=== PATIENT | female | born 1945 | race Caucasian/White ===

== ENCOUNTER → 2016-02-12 10:05 | Outpatient (CLI) | payer MEDICARE ==
[2015-10-07 08:57] VITALS: BMI 21.7
[~2016-02-12 10:05] MED LIST: ATIVAN0.5 MG PO; CARDIZEM 90 MG90 MG PO; FUROSEMIDE20 MG PO; IPRAT-ALBUT 0.5-3 ML UPD; LASIX40 MG PO; LIPITOR10 MG; LIPITOR10 MG PO; MEDROL DOSE PACK4 MG PO; METOPROLOL TART25 MG PO; PACERONE200 MG PO; RESTORIL15 MG PO; VASOTEC20 MG PO; VENTOLIN HFA18 GM INH; VIBRAMYCIN 100100 MG PO; XOPENEX 0.0.63 MG/3 UPD
== END | disposition home or self-care (01) ==
LOC: D.RAD 10:05
DX: J18.9 Pneumonia, unspecified organism (principal)

== ENCOUNTER 2016-02-17 12:24 | Inpatient (IN) | payer MEDICARE ==
[~2016-02-17] VITALS: Ht 170.2 cm; Wt 62.8 kg
[~2016-02-17 12:24] MED LIST changes: -LASIX40 MG PO; -MEDROL DOSE PACK4 MG PO; -RESTORIL15 MG PO; -VIBRAMYCIN 100100 MG PO
[2016-02-17 13:26] LABS: BASOPHILS 0.5 % (0.0-2.0); HEMATOCRIT 38.5 % (36.0-48.0); HEMOGLOBIN 12.6 g/dL (12-16); IMMATURE GRANULOCYTES 1.3 % (0-5); LYMPHOCYTES 11.8 % (15-50); MCH 29.1 pg (26.0-34.0); MCHC 32.7 g/dL (31.0-37.0); MCV 88.9 fL (80.0-100.0); MEAN PLATELET VOLUME 9.4 fL (7.4-10.4); MONOCYTES 14.4 % (2-11); RBC 4.33 10x6/uL (4.00-5.40); RDW 15.9 % (11.5-14.5)
[2016-02-17 13:29] LABS: PLATELET COUNT 437 10x3/uL (130-400)
--- NOTE | 2016-02-17 14:01 | NUR ---
RECIEVED FROM DRS OFFICE. ALERT AND ORIENTD. EDEMA TO BOTH FEET AND LEGS BILATERAL. O2 AT 2 L/M PER NASAL CANNULA. TELEMERTY SHOWS SR. WILL MONITOR
[2016-02-17 14:23] LABS: ALBUMIN 3.2 g/dL (3.4-5.0); ANION GAP 15.6 mmol/L (8-16); BILIRUBIN - TOTAL 0.23 mg/dL (0.2-1.3); CALCIUM 10.1 mg/dL (8.5-10.1); CARBON DIOXIDE 28.8 mmol/L (21.0-32.0); CREATININE - SERUM 0.8 mg/dL (0.6-1.3); POTASSIUM - SERUM 3.4 mmol/L (3.5-5.1); PROTEIN - SERUM 6.9 g/dL (6.4-8.2); T4 THYROXIN - FREE 1.66 ng/dL (0.76-1.46); THYROID STIMULATING HORMONE 12.57 uIU/mL (0.36-3.74)
[2016-02-17 14:25] LABS: CKMB 1.9 U/L (0.0-3.6); CREATINE KINASE 50 UL (21-215); TROPONIN-I < 0.017 ng/mL (0.000-0.060)
[2016-02-17 14:36] VITALS: BP 147/74; BMI 21.2
--- NOTE | 2016-02-17 15:21 | NUR ---
IV access-#22 gauge intracan IV catheter x 1 attempt for saline flush. [place] RN
--- NOTE | 2016-02-17 18:40 | NUR ---
UP TO BATHROOM. DENIES ANY NEEDS. CALL LIGHT IN REACH WITH SR UP. WILL MONITOR
--- NOTE | 2016-02-17 19:03 | NUR ---
SITTING UP IN BED, AAOX3, SKIN WARM AND DRY, RESP UNLABORED, IV PATENT TO LEFT FOREARM, MOOD PLEASANT, NO DISTRESS NOTED
[2016-02-17 19:50] LABS: CKMB 2.5 U/L (0.0-3.6); CREATINE KINASE 52 UL (21-215)
[2016-02-17 19:54] LABS: TROPONIN-I < 0.017 ng/mL (0.000-0.060)
[2016-02-17 21:27] VITALS: BP 181/79
[2016-02-18] VITALS: BP 182/75
[2016-02-18] MEDS ORDERED: PACERONE200 MG PO (00:46)
[2016-02-18 02:21] LABS: CKMB 1.8 U/L (0.0-3.6); CREATINE KINASE 74 UL (21-215)
[2016-02-18 02:36] LABS: TROPONIN-I < 0.017 ng/mL (0.000-0.060)
[2016-02-18 04:00] VITALS: BP 178/81
--- NOTE | 2016-02-18 04:53 | NUR ---
PT LAYING IN BED NO DISTRESS OBSERVED CALL LIGHT IN REACH SRX2 BED LOW AND LOCKED WILL MONITOR
--- NOTE | 2016-02-18 05:00 | NUR ---
RESTING QUIETLY IN BED, NO DISTRESS NOTED
[2016-02-18 07:27] VITALS: BP 151/73
--- NOTE | 2016-02-18 07:27 | NUR ---
ASSESSMENT COMPLETED. 02 AT 2 L/M PER NC. LEFT ARM SL. TELEMERTY SHOWSSR WITH A RATE OF 77. PT IS UP ABLIB. WILL MONITOR
[2016-02-18 11:36] VITALS: BP 157/79
--- NOTE | 2016-02-18 12:14 | NUR ---
PT REFUSES SCD S. DENIES ANY NEEDS. WILL MONITOR
[2016-02-18 14:22] VITALS: Ht 170.2 cm; Wt 62.8 kg
--- NOTE | 2016-02-18 14:57 | NUR ---
HOB UP. EYES CLOSED RESTING QUIETLY. TELEMERTY SHOWS SR. WILL MONITOR
[2016-02-18 15:44] VITALS: BP 137/73
--- NOTE | 2016-02-18 15:52 | NUR ---
PATIENT ASLEEP. WITH CONTINUE TO MONITOR
--- NOTE | 2016-02-18 18:43 | NUR ---
DENIES ANY NEEDS. FEET WITH LESS SWELLING. WILL MONITOR
--- NOTE | 2016-02-18 19:03 | NUR ---
SITTING UP IN BED, AAOX3, SKIN WARM AND DRY, RESP UNLABORED, IV PATENT TO LEFT FOREARM, O2@2LNC, MOOD PLEASANT, NO DISTRESS NOTED
[2016-02-18 19:46] VITALS: BP 157/64
--- NOTE | 2016-02-19 00:40 | NUR ---
PT LAYING IN BED NO DISTRESS OBSERVED CALL LIGHT IN REACH SRX2 BED LOW AND LOCKED WILL MONITOR
[2016-02-19 01:10] VITALS: BP 148/66
[2016-02-19 04:00] VITALS: BP 114/45
[2016-02-19 07:37] VITALS: BP 125/51
--- NOTE | 2016-02-19 08:00 | NUR ---
ASSESSMENT DONE. DENIES NEEDS.
--- NOTE | 2016-02-19 09:24 | NUR ---
RESP UL ON . CALL LIGHT IN REACH. JENNIFER NEEDS AT THIS TIME. WILL MONITOR.
--- NOTE | 2016-02-19 10:32 | NUR ---
Patient Name: ISABELLA LONDONO Admission Status: Elective Accout number: [id number] Admission Date: 02-17-2016 : 1945 Admission Diagnosis: Attending: TYE Current LOS: 2 Anticipated DC Date: Planned Disposition: Home with Home Health Primary Insurance: [facility] PFFS PLANNED EXTERNAL PROVIDER: [facility] Discharge Planning Comments: * Is the patient Alert and Oriented? Yes 0 * How many steps to enter\exit or inside your home? RAMP 0 * PCP DR. WYMAN 0 * Pharmacy [facility], [address] * Preadmission Environment Home with Family 0 * ADLs Independent 0 * Equipment Bedside Commode Crutch Oxygen Walker 0 * Other Equipment [facility] - MEDICAL EQUIPMENT PROVIDER HOME AND PORTABLE OXYGEN - PRIVATELY OWNED 0 * List name and contact numbers for known caregivers / representatives who currently or will assist patient after discharge: WANG SHETH-[employer], DAUGHTER, 0 * Community resources currently utilized None 0 * Please name any agencies selected above. NONE 0 * Additional services required to return to the preadmission environment? No 0 * Can the patient safely return to the preadmission environment? Yes 0 * Has this patient been hospitalized within the prior 30 days at any hospital? No 0 CM MET WITH PT IN ROOM TO DISCUSS DISCHARGE PLANNING AND NEEDS. PT REPORTS LIVING AT HOME INDEPENDENTLY WITH HER SPOUSE. PT REPORTS HAVING ALL NEEDED MEDICAL EQUIPMENT, STATES THAT SHE HAS PORTABLE AND HOME OXYGEN THAT IS OWNED PRIVATELY. PT HAS NO OUTSIDE SERVICES ASSISTING IN THE HOME. CM DISCUSSED AVAILABILITY OF HOME HEALTH, REHAB SERVICES AND MEDICAL EQUIPMENT. PT HAS HAD [facility] IN THE PAST AND FEELS IT HELPED HER AND WOULD LIKE [facility] AGAIN AT DISCHARGE; PT REPORTS HER SPOUSE WILL PICK HER UP FOR DISCHARGE HOME. PT SIGNED CHOICE LETTER FOR [facility]. IF PHYSICIAN AGREES WITH NEED FOR HOME HEALTH SERVICES, OBSERVATION AND ASSESSMENT [facility] PHYSICAL THERAPY, CM WILL ARRANGE WITH PHYSICIAN ORDERS. Certified Personal Finance Counselor: Jeovanny Espinoza
[2016-02-19 11:27] VITALS: BP 149/67
[2016-02-19 15:35] VITALS: BP 156/60
--- NOTE | 2016-02-19 18:58 | NUR ---
WITHOUT CHANGES OR DISTRESS NOTED AT THIS TIME.
--- NOTE | 2016-02-19 19:03 | NUR ---
SITTING UP IN BED, AAOX3, SKIN WARM AND DRY, RESP UNLABORED, IV INFILTRATED, RESITED TO RIGHT FOREARM USING 20G X 1 ATTEMPT, VIKRAM WELL, NO DISTRESS NOTED
[2016-02-19 21:18] VITALS: BP 155/58
[2016-02-20 01:32] VITALS: BP 157/77
--- NOTE | 2016-02-20 02:26 | NUR ---
LYING IN BED WITH CALL LIGHT IN REACH. WILL CONTINUE WITH PLAN OF CARE.
[2016-02-20 04:57] VITALS: BP 159/61
[2016-02-20 06:05] LABS: BASOPHILS 0.1 % (0.0-2.0); EOSINOPHILS 0 % (0-7); HEMATOCRIT 35.4 % (36.0-48.0); HEMOGLOBIN 11.7 g/dL (12-16); IMMATURE GRANULOCYTES 1.3 % (0-5); LYMPHOCYTES 12.5 % (15-50); MCH 28.2 pg (26.0-34.0); MCHC 33.1 g/dL (31.0-37.0); MCV 85.3 fL (80.0-100.0); MEAN PLATELET VOLUME 9.6 fL (7.4-10.4); MONOCYTES 3.5 % (2-11); NEUTROPHILS 82.6 % (40-80); PLATELET COUNT 466 10x3/uL (130-400); RBC 4.15 10x6/uL (4.00-5.40); RDW 15.4 % (11.5-14.5); WBC 7.5 10x3/uL (4.8-10.8)
[2016-02-20 06:21] LABS: ANION GAP 11.7 mmol/L (8-16); CARBON DIOXIDE 30.6 mmol/L (21.0-32.0); CREATININE - SERUM 0.9 mg/dL (0.6-1.3); MAGNESIUM - SERUM 1.6 mg/dL (1.8-2.4); POTASSIUM - SERUM 3.3 mmol/L (3.5-5.1)
--- NOTE | 2016-02-20 07:15 | NUR ---
PT SITTING UP IN BED DOING BREATHING TX. DENIES NEEDS WILL CONTINUE TO MONITOR
[2016-02-20 08:38] VITALS: BP 150/64
[2016-02-20 12:25] VITALS: BP 132/56
--- NOTE | 2016-02-20 15:54 | NUR ---
PT SITTING UP IN BED RECEIVING IV ABX. PT HAS BEEN COMPLAINING OF IV MEDS HURTING. PIV SITE IS NOT RED OR INDURATED. NO PAIN AT SITE WHEN FLUSHED WITH JUST SALINE. PT IS GETTING SOLUMEDROL AND DOXYCYCLINE IV. SLOWED IV ABX DOWN AND DILUTED SOLUMEDROL HAS SEEMED TO HELP. PT DENIES OTHER NEEDS. WILL CONTINUE TO MONITOR.
[2016-02-20 16:28] VITALS: BP 146/66
[2016-02-20 20:00] VITALS: BP 133/47
--- NOTE | 2016-02-20 20:10 | NUR ---
ANSWERED PTS CL, PT STATED THAT SHE WANTS HER IV TAKEN OUT, EXPLAINED TO HER THAT SHE WAS ADMITTED WITH CHF AND THAT SHE REALLY NEEDS TO HAVE IV ACCESS TO RECIEVE HER MEDICATIONS SUCH ANTIBIOTICS, STEROIDS AND DIURETICS. PT STATED THAT SHE WILL TAKE FULL RESPONSABILITY WITH THE DOCTOR AND TO JUST TAKE OUT HER IV, INFORMED HER THAT I WILL CALL THE DR AND ASK ABOUT ORAL MEDICATIONS, PT AGREED TO KEEP IV FOR NOW BUT ALSO STATED THAT SHE WILL NOT TAKE ANY IV MEDICATIONS FOR THE REST OF THE NIGHT UNTIL SHE TALKS TO THE DOCTOR IN THE MORNING.
--- NOTE | 2016-02-20 21:32 | NUR ---
HS MEDS GIVEN, PT WOULD ONLY AGREE TO TAKE PO MEDICATIONS, REFUSED TO RECIEVE SOLUMEDROL THROUGH IV.
--- NOTE | 2016-02-20 22:50 | NUR ---
SPOKE WITH DR MALDONADO, EXPLAINED THAT PT HAS A GOOD FUNCTIONING IV TO RIGHT FOREARM BUT SHE STATES THAT SHE WANTS IT OUT BECAUSE IT HURTS, INFORMED OF PTS IV MEDICATIONS AND ASKED ABOUT CHANGING TO ORAL, ORDERS GIVEN TO CHANGE LASIX TO PO AND OTHER MEDICATIONS NEEDS TO BE DSICUSSED WITH HER PRIMARY PHYSICIAN.
[2016-02-21] VITALS: BP 127/55
[2016-02-21 04:00] VITALS: BP 125/53
--- NOTE | 2016-02-21 05:02 | NUR ---
CALL LIGHT IN REACH, WILL CONTINUE WITH PLAN OF CARE.
[2016-02-21 05:43] LABS: BASOPHILS 0.1 % (0.0-2.0); EOSINOPHILS 0 % (0-7); HEMATOCRIT 34.6 % (36.0-48.0); HEMOGLOBIN 11.3 g/dL (12-16); IMMATURE GRANULOCYTES 1.3 % (0-5); LYMPHOCYTES 6.4 % (15-50); MCH 28.1 pg (26.0-34.0); MCHC 32.7 g/dL (31.0-37.0); MCV 86.1 fL (80.0-100.0); MEAN PLATELET VOLUME 9.8 fL (7.4-10.4); MONOCYTES 6.1 % (2-11); NEUTROPHILS 86.1 % (40-80); PLATELET COUNT 457 10x3/uL (130-400); RBC 4.02 10x6/uL (4.00-5.40); RDW 15.6 % (11.5-14.5)
[2016-02-21 05:50] LABS: WBC 17.3 10x3/uL (4.8-10.8)
[2016-02-21 05:57] LABS: ANION GAP 14.2 mmol/L (8-16); CALCIUM 9.7 mg/dL (8.5-10.1); CARBON DIOXIDE 27.4 mmol/L (21.0-32.0); CREATININE - SERUM 1.1 mg/dL (0.6-1.3); MAGNESIUM - SERUM 1.7 mg/dL (1.8-2.4); PHOSPHOROUS 3.7 mg/dL (2.5-4.9); POTASSIUM - SERUM 3.6 mmol/L (3.5-5.1)
--- NOTE | 2016-02-21 07:15 | NUR ---
PT SITTING UP IN BED DENIES NEEDS OTHER THAN WANTING IV MEDS CHANGED TO PO. REFUSING IV MEDS. WILL CONTINUE TO MONITOR.
[2016-02-21 08:00] VITALS: BP 127/46
[2016-02-21 12:00] VITALS: BP 134/59
--- NOTE | 2016-02-21 13:31 | HP ---
PATIENT: ISABELLA LONDONO MEDICAL RECORD: [id number] ACCOUNT: [id number] LOCATION:[address] : [birth year] ADMISSION DATE: 02/17/16 HISTORY AND PHYSICAL EXAMINATION DATE OF ADMISSION: 02/17/2016. CHIEF COMPLAINT: Lower extremity edema and weakness. HISTORY OF PRESENT ILLNESS: This is a 70-year-old female who presented to my office today with increased lower extremity edema, a little worse on the left. She has had a horrible chest congestion for the last week. She states she stopped eating, has been losing weight. She is drinking lots of fluids, however. She denies any chest pain, but states she cannot walk, but just a few feet without becoming short of breath. In the office, she had 3-4+ bilateral lower extremity edema. She has some crackles in her lungs. She is admitted for fluid overload and acute systolic congestive heart failure. PAST MEDICAL AND SURGICAL HISTORY: She was hospitalized at [facility] on 10/05/2015 and found to have atrial fibrillation with rapid ventricular response. Her echo then showed ejection fraction of 55% with moderate to severe mitral regurgitation and tricuspid regurgitation. She was also found to have anxiety and she has COPD, hypertension, and high cholesterol. Her past surgical history is tonsillectomy. 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 FAMILY HISTORY: Not documented. HABITS: She is a former smoker. No alcohol or drug use. REVIEW OF SYSTEMS: GENERAL: No major weight changes. HEENT: No particular sinus or allergy problems. RESPIRATORY: She has COPD and is seen by Dr. Toro and Dr. Diaz. CARDIAC: History of paroxysmal atrial fibrillation, followed by Dr. Parry. GASTROINTESTINAL: She denies reflux. GENITOURINARY: No significant problems there. MUSCULOSKELETAL: Few joint aches and pains. NEUROLOGIC: No migraines or seizures. PSYCHIATRIC: She has some anxiety. PHYSICAL EXAMINATION: VITAL SIGNS: Temperature 97.9, pulse 78, respirations 20, blood pressure 181/79, O2 sat 97%. SKIN: She is weak and ill appearing, a little pale. HEENT: Grossly within normal limits. NECK: Supple. No bruit. HEART: Regular rate and rhythm without murmur. LUNGS: Crackles in the bases bilaterally. ABDOMEN: Soft. EXTREMITIES: With 3-4+ pitting edema in the lower extremities bilaterally. LABORATORY DATA: Cardiac enzymes are negative. CBC with a white count of 12,000, hemoglobin 12.6, hematocrit 38.5. 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 LFTs were okay. TSH is elevated at 12.5 but so is free T4 at 1.66. DIAGNOSTIC DATA: Chest x-ray had showing think emphysema without acute cardiopulmonary disease. There is no radiographic findings of congestive heart failure. ASSESSMENT: 1. Acute fluid overload. 2. Acute systolic congestive heart failure. PLAN: Diurese, check echocardiogram. I will ask Dr. Parry to see her. Other tests and procedures as warranted. TRANSINT:[id number] Voice Confirmation ID: [id number] DOCUMENT ID: [id number] CECY WYMAN MD at 1331 CC: [id number] DICTATION DATE: 02/18/16 0057 C 13 CATAPULT OPERATOR: 02/18/16 0156 ADM IN [facility] [address] [place] [address]
[2016-02-21 16:02] VITALS: BP 116/57
--- NOTE | 2016-02-21 18:44 | NUR ---
PT SITTING UP IN BED DENEIS NEEDS
[2016-02-21 20:00] VITALS: BP 134/59
[2016-02-22] VITALS: BP 124/52
--- NOTE | 2016-02-22 02:06 | NUR ---
PT RESTING WELL WITHOUT C/O OR DISTRESS NOTED. NO NEEDS VOICED. CALL LIGHT WITHIN REACH. WILL CONT TO MONITOR.
[2016-02-22 04:00] VITALS: BP 147/61
--- NOTE | 2016-02-22 04:16 | NUR ---
IV TO RIGHT FOREARM LEAKING, IV CATH REMOVED WITH TIP INTACT. IV RESITED TO LEFT FOREARM, 22 GUAGE. PT TOLERATED WELL. IV ABX INFUSING, WILL CONT TO MONITOR.
[2016-02-22 06:19] LABS: BASOPHILS 0.1 % (0.0-2.0); EOSINOPHILS 0 % (0-7); HEMATOCRIT 34.5 % (36.0-48.0); HEMOGLOBIN 11.4 g/dL (12-16); IMMATURE GRANULOCYTES 1.3 % (0-5); LYMPHOCYTES 4.9 % (15-50); MCH 28.6 pg (26.0-34.0); MCV 86.5 fL (80.0-100.0); MEAN PLATELET VOLUME 9.8 fL (7.4-10.4); MONOCYTES 6.7 % (2-11); PLATELET COUNT 410 10x3/uL (130-400); RBC 3.99 10x6/uL (4.00-5.40); RDW 15.6 % (11.5-14.5); WBC 13.8 10x3/uL (4.8-10.8)
[2016-02-22 06:41] LABS: ANION GAP 12.1 mmol/L (8-16); CALCIUM 8.7 mg/dL (8.5-10.1); CARBON DIOXIDE 28.6 mmol/L (21.0-32.0); CREATININE - SERUM 0.9 mg/dL (0.6-1.3); MAGNESIUM - SERUM 1.9 mg/dL (1.8-2.4); PHOSPHOROUS 3.5 mg/dL (2.5-4.9); POTASSIUM - SERUM 3.7 mmol/L (3.5-5.1)
--- NOTE | 2016-02-22 07:17 | NUR ---
PT SITTING UP IN BED DOING BREATHING TREATMENT. DENIES NEEDS WILL CONTINUE TO MONITOR.
[2016-02-22 08:40] VITALS: BP 129/57
[2016-02-22 12:03] VITALS: BP 141/67
[2016-02-22 14:47] VITALS: BP 114/54
--- NOTE | 2016-02-22 18:27 | NUR ---
PT SITTING UP IN BED DENIES NEEDS
--- NOTE | 2016-02-22 19:34 | NUR ---
ASSESSMENT COMPLETE, A&O, SITTING UP IN BED WATCHING TV. PT DENIES PAIN OR NEEDS, BED LOW, CL IN REACH.
[2016-02-22 21:13] VITALS: BP 146/62
[2016-02-23] VITALS (7 sets, daily range): BP systolic 145–176; BP diastolic 63–79
[2016-02-23 06:11] LABS: BASOPHILS 0.1 % (0.0-2.0); EOSINOPHILS 0.1 % (0-7); HEMATOCRIT 36.6 % (36.0-48.0); HEMOGLOBIN 11.7 g/dL (12-16); IMMATURE GRANULOCYTES 1.5 % (0-5); LYMPHOCYTES 11.5 % (15-50); MCH 28.1 pg (26.0-34.0); MEAN PLATELET VOLUME 10.3 fL (7.4-10.4); MONOCYTES 18.3 % (2-11); NEUTROPHILS 68.5 % (40-80); PLATELET COUNT 437 10x3/uL (130-400); RBC 4.16 10x6/uL (4.00-5.40); RDW 15.7 % (11.5-14.5); WBC 15.4 10x3/uL (4.8-10.8)
[2016-02-23 06:35] LABS: ANION GAP 13.4 mmol/L (8-16); CALCIUM 9.3 mg/dL (8.5-10.1); CREATININE - SERUM 0.9 mg/dL (0.6-1.3); PHOSPHOROUS 3.4 mg/dL (2.5-4.9); POTASSIUM - SERUM 4.4 mmol/L (3.5-5.1)
--- NOTE | 2016-02-23 09:53 | NUR ---
TELEMETRY SR. RESP UL ON 02 3L NC. CALL LIGHT IN REACH. WILL MONITOR NEEDS.
--- NOTE | 2016-02-23 19:32 | NUR ---
RESUMED CARE OF PT, LYING IN BED RESPIRATIONS EVEN AND UNLABORED ON 3LPM VIA NC. 71 SR ON TELEMETRY. LEFT WRIST SALINE LOCKED. NO NEEDS VOICED AT THIS TIME. WILL CONTINUE TO [facility]. SEE NURSE ASSESSMENT.
[2016-02-24] VITALS: BP 156/68
--- NOTE | 2016-02-24 02:37 | NUR ---
LYING IN BED WITH EYES CLOSED, CALL LIGHT IN REACH. WILL CONTINUE WITH PLAN OF CARE.
--- NOTE | 2016-02-24 03:58 | NUR ---
IV INFILTRATED, DC'D WITH TIP INTACT. 22 GAUGE TO LEFT HAND X 1 STICK. DOXYCYCLINE INFUSING. WILL CONTINUE TO MONITOR. CALL LIGHT IN REACH.
[2016-02-24 04:00] VITALS: BP 101/56
[2016-02-24 06:01] LABS: BASOPHILS 0.2 % (0.0-2.0); EOSINOPHILS 0.1 % (0-7); HEMATOCRIT 35.1 % (36.0-48.0); HEMOGLOBIN 11.4 g/dL (12-16); IMMATURE GRANULOCYTES 1.7 % (0-5); LYMPHOCYTES 17.2 % (15-50); MCH 28.2 pg (26.0-34.0); MCHC 32.5 g/dL (31.0-37.0); MCV 86.9 fL (80.0-100.0); MONOCYTES 17.6 % (2-11); NEUTROPHILS 63.2 % (40-80); PLATELET COUNT 402 10x3/uL (130-400); RBC 4.04 10x6/uL (4.00-5.40); RDW 15.7 % (11.5-14.5); WBC 13.3 10x3/uL (4.8-10.8)
[2016-02-24 06:12] LABS: ANION GAP 8.8 mmol/L (8-16); CALCIUM 8.4 mg/dL (8.5-10.1); CARBON DIOXIDE 29.3 mmol/L (21.0-32.0); CREATININE - SERUM 0.8 mg/dL (0.6-1.3); MAGNESIUM - SERUM 1.9 mg/dL (1.8-2.4)
[2016-02-24 06:16] LABS: POTASSIUM - SERUM 3.1 mmol/L (3.5-5.1)
--- NOTE | 2016-02-24 06:40 | NUR ---
AM K+ 3.1 FOLLOWED ELECTROLYTE PROTOCOL AND GAVE 40 MEQ OF K+ PO. WILL CONTINUE TO MONITOR.
--- NOTE | 2016-02-24 07:06 | NUR ---
NO CHANGES FROM PREVIOUS ASSESSMENT, CALL LIGHT IN REACH.
[2016-02-24 08:00] VITALS: BP 156/61
[2016-02-24 09:05] VITALS: BP 188/71
[2016-02-24 11:59] VITALS: BP 122/53
--- NOTE | 2016-02-24 13:49 | NUR ---
TELEMETRY SR. AMBULATES HALLWAY WITH PT CORINNE.
[2016-02-24 15:46] VITALS: BP 132/58
--- NOTE | 2016-02-24 16:43 | NUR ---
Patient Name: ISABELLA LONDONO Encounter No: [id number] : 1945 Primary Insurance: [facility] [employer] PFFS Anticipated DC Date: Planned Disposition: Home with Home Health External Planned Provider: [facility] DCP follow-up note: CM RECEIVED HOME HEALTH ORDER, SPOKE TO PT IN ROOM WHO IS WANTING HOME HEALTH AT DISCHARGE. CM ATTEMPTED TO PROVIDE AND DISCUSS IMPORTANT MESSAGE FROM MEDICARE, PT REPORTS TO BE IN PAIN AND ASKED CM TO COME BACK LATER. CM FAXED REFERRAL TO [facility], , CALLED [facility] [phone], PROVIDED REFERRAL TO [place]. FOR DISCHARGE HOME, FAX DISCHARGE INFORMATION TO [facility] [facility], , NOTIFY [facility] OF PT'S DISCHARGE, . CM TO CONTINUE TO FOLLOW AND ASSIST NEEDED. Jeovanny Espinoza, CASE MANAGEMENT
--- NOTE | 2016-02-24 19:03 | NUR ---
SITTING UP IN BED, AAOX3, SKIN WARM AND DRY, RESP UNLABORED, IV PATENT TO LEFT HAND, O2@3LNC, MOOD PLEASANT, NO DISTRESS NOTED
[2016-02-25] VITALS: BP 152/69
--- NOTE | 2016-02-25 02:19 | NUR ---
PT LAYING IN BED NO DISTRESS OBSERVED CALL LIGHT IN REACH SRX2 BED LOW AND SERVANDO PT READING 70 SR ON MONITORS RESPERATIONS EVEN AND UNLBAORED WILL MONITOR
[2016-02-25 04:00] VITALS: BP 163/69
--- NOTE | 2016-02-25 05:41 | NUR ---
REFUSING AM LABS, STATING "I WANT TO WAIT TO SEE THE DOCTOR FIRST", ATTEMPTED TO ENCOURAGE TO ALLOW LAB DRAW AT THIS TIME FOR DOCTOR TO SEE VALUES BUT CONTINUES TO REFUSE
[2016-02-25 08:00] VITALS: BP 140/70
[2016-02-25] MEDS ORDERED: LASIX40 MG PO (08:33)
[2016-02-25] MEDS ORDERED: VIBRAMYCIN 100100 MG PO (08:33)
[2016-02-25] MEDS ORDERED: MEDROL DOSE PACK4 MG PO (08:35)
[2016-02-25] MEDS ORDERED: RESTORIL15 MG PO (08:36)
--- NOTE | 2016-02-25 09:33 | NUR ---
TELEMETRY SR. AMBULATES HALLWAY WITH PT ASSIST. WILL CONT. PLAN OF CARE.
--- NOTE | 2016-02-25 11:10 | NUR ---
Patient Name: ISABELLA LONDONO Encounter No: [id number] : 1945 Primary Insurance: [facility] PFFS Anticipated DC Date: 02-25-2016 Planned Disposition: Home with Home Health External Planned Provider: [place] [facility] [place] DCP follow-up note: CM RECEIVED OXYGEN TESTING, PT QUALIFIES FOR PORTABLE OXYGEN. CM MET WITH PT AND SPOUSE IN ROOM TO DISCUSS DISCHARGE NEEDS. PT WOULD LIKE OXYGEN FROM [facility]. PT IN AGREEMENT WITH DISCHARGE HOME TODAY WITH [place]. SPOUSE TO TRANSPORT HOME. IMPORTANT MESSAGE FROM MEDICARE PROVIDED AND EXPLAINED. CM CALLED [facility], , PROVIDED REFERRAL TO [facility] AND FAXED REFERRAL TO [phone]. PORTABLE OXYGEN TO BE DELIVERED TO PT'S HOSPITAL ROOM FOR DISCHARGE HOME. CM FAXED DISCHARGE INFORMATION TO [place], , NOTIFIED [facility] OF PT'S DISCHARGE, . PT NOTIFIED. NO FURTHER DISCHARGE NEEDS IDENTIFIED. Jeovanny Espinoza, CASE MANAGEMENT
--- NOTE | 2016-02-25 12:37 | NUR ---
IV AND TELEMETRY DCD. DC PLANS GIVEN. UNDERSTANDING VOICED. ESCORTED TO CAR BY W/C.
--- NOTE | 2016-03-02 15:45 | EC ---
PATIENT:ISABELLA LONDONO DATE OF SERVICE: 02/17/16 SEX: F MEDICAL RECORD: [id number] DATE OF : [birth year] LOCATION:D. D.212 AGE OF PATIENT: 70 ADMISSION DATE: 02/17/16 REFERRING PHYSICIAN: INTERPRETING PHYSICIAN: SULTANA PARRY M.D. ECHOCARDIOGRAM REPORT ECHO CHARGES 4 ECHO COMPLETE CLINICAL DIAGNOSIS: CHF/FLUID OVERLOAD ECHOCARDIOGRAPHIC MEASUREMENTS (adult normal given) AC root (d.<3.7cm) 2.6 LV Septum d (<1.2 cm> 1.2 Valve Excursion 1.5 LV Septum (systole) 1.8 Left Atria (s.<4.0cm> 4.0 LVPW d(<1.2cm) 1.2 RV (d.<2.3cm) 1.9 LVPW (sytole) 1.7 LV diastole(<5.6CM) 4.9 MV E-F(>70mm/sec) LV systole 2.9 LVOT Diameter 1.6 MV exc.(>10mm) Est.ejection fraction (50-75%) Pericardial Effusion N DOPPLER: LVIT A 105 E 121 LA RVSP 53.0 LVOT 141 AOP1/2T Asc. Ao 198 RVOT 80.0 RA PA 109 AV Gradient Peak 16.0 AV Mean 8.2 AV Area 1.6 MV Gradient Peak 6.8 MV Mean 3.0 MV Area COMMENTS: Home Health Care Social Worker: Trisha VERAOE Scientific Research Associate:Nuvia Parry TAPE# PACS DATE OF SERVICE: 02/17/2016 Echocardiogram Report REFERRING PHYSICIAN: Dr. Antonio. INDICATION: CHF. DESCRIPTION: Left ventricle demonstrates left ventricular hypertrophy. No wall motion abnormalities are seen. Estimated ejection fraction is 55%. Mitral ECHOCARDIOGRAM REPORT [id number] ISABELLA LONDONO valve is structurally normal. There is moderate regurgitation seen. Left atrium is mildly dilated. The aortic valve leaflets are thickened. However, there is no stenosis or regurgitation seen. Right ventricle appears normal in size and function. Tricuspid valve is structurally normal. There is moderate regurgitation seen. Right ventricular systolic pressure is elevated at 53 mmHg. Right atrium is normal size. There is no pericardial effusion seen. IMPRESSION: 1. Left ventricular hypertrophy with preserved ejection fraction of 55%. 2. Moderate mitral regurgitation. 3. Aortic valve sclerosis without stenosis. 4. Moderate tricuspid regurgitation with elevated pulmonary pressures. TRANSINT:[id number] Voice Confirmation ID: [id number] DOCUMENT ID: [id number] SULTANA PARRY M.D. at 1545 CC: [id number] DICTATION DATE: 02/17/16 1539 QUALITY CONTROL MANAGER: 02/17/16 1605 DIS IN 02/25/16 [place] [id number] [place] [id number]
--- NOTE | 2016-03-04 09:13 | CN ---
PATIENT NAME:ISABELLA PATE MEDICAL RECORD: [id number] : [birth year] LOCATION:D. D.2125 ADMIT DATE: 02/17/16 ACCOUNT: [id number] CONSULTING PHYSICIAN: MARLON YEBOAH MD REFERRING PHYSICIAN: CECY WYMAN MD DATE OF CONSULTATION: 02/19/2016 Pulmonary Consultation CONSULT REQUESTING PHYSICIAN: Dr. Cecy Wyman. REASON FOR CONSULTATION: Acute shortness of breath and COPD exacerbation. HISTORY OF PRESENT ILLNESS: Ms. Pate is a 70-year-old female. She was in Dr. Wyman's office with a 3+ pedal edema and worsening shortness of breath. She is also complaining of congestion of her chest, hearing herself wheezing. She has cough with very little sputum production. She also hears herself wheezing. Denies any fever or chill. There are no night sweats. REVIEW OF SYSTEMS: CONSTITUTIONAL: There are no fever or chills. HEENT: No sinus congestion. RESPIRATORY: As in history of present illness. CARDIOVASCULAR: She has swelling of the lower extremity. GASTROINTESTINAL: Negative. GENITOURINARY: Negative. Other review of the systems is negative. PAST MEDICAL HISTORY: 1. Hypertension. 2. COPD. 3. Hyperlipidemia. 4. Atrial fibrillation. PAST SURGICAL HISTORY: She has a T&A and pilonidal cyst removed. ALLERGIES: SHE IS ALLERGIC TO CODEINE. PRESENT MEDICATIONS: She is on Lasix, albuterol/ipratropium nebulizer. Her other medication is reviewed. PERSONAL AND SOCIAL HISTORY: The patient has a remote history of smoking. She is a nondrinker. FAMILY HISTORY: Noncontributory. PHYSICAL EXAMINATION: GENERAL: Now, the patient is lying comfortably. She is not in acute distress. VITAL SIGNS: The blood pressure is 149/67, pulse is 80, respirations 18, temperature 97.5, and SPO2 is 91% on room air. HEENT: Conjunctivae are pink. Sclerae nonicteric. NECK: Supple. No JVD. CHEST: Excursion is minimal on both sides. There are wheezing on forceful expiration. HEART: Rhythm regular, normal sound, no murmur. CONSULT REPORT [id number] ISABELLA PATE ABDOMEN: Soft. Bowel sounds present. No hepatosplenomegaly. RECTAL: Deferred. EXTREMITIES: No cyanosis, no clubbing. There are 2+ pedal edema, left more than the right. SKIN: Warm, normal turgor. CENTRAL NERVOUS SYSTEM: The patient is awake and alert. There are no obvious cranial nerve abnormality. The gait was not tested. CHEST RADIOGRAPH: There is hyperinflation, no acute infiltrate. LABORATORY DATA: CBC: The WBC is 12,000, hemoglobin 12.6, hematocrit 38.5, the platelet count is 436. Chemistry: Sodium 148, potassium 3.4, creatinine 0.8, BUN was 13. The cardiac enzyme was normal. The TSH was 12.57. IMPRESSION: 1. Acute exacerbation of chronic obstructive pulmonary disease. 2. Tracheobronchitis. 3. Congestive heart failure with chronic diastolic dysfunction with EF above 50%. 4. Moderate to severe pulmonary hypertension. The PA pressure is 53. 5. Tricuspid regurgitation. 6. Hypernatremia. 7. Leukocytosis. RECOMMENDATION: 1. Start on doxycycline. 2. Albuterol/ipratropium nebulizer, Brovana and budesonide nebulizer, methylprednisolone IV. Check the CTA of the chest to rule out any pulmonary embolism. Supplemental oxygen if required. Continue Lasix. Dr. Wyman, once again, thank you for involving me in the care of Ms. Pate. TRANSINT:[id number] Voice Confirmation ID: [id number] DOCUMENT ID: [id number] MARLON YEBOAH MD at 0913 CC: CECY WYMAN MD [id number] DICTATION DATE: 02/19/16 1525 CLEARING DISTRIBUTION CLERK: 02/19/16 1613 DIS IN 02/25/16 [place] [id number] [place] [address]
== END 2016-02-25 12:38 | disposition home health service (06) | DRG 292 ==
LOC: D.M2 12:24
PROVIDERS: Internal Medicine Pulmonary Disease; ADMIT Family Medicine
DX: I11.0 Hypertensive heart disease with heart failure (principal); J44.1 Chronic obstructive pulmonary disease with (acute) exacerbation; E87.0 Hyperosmolality and hypernatremia; I50.33 Acute on chronic diastolic (congestive) heart failure; J44.9 Chronic obstructive pulmonary disease, unspecified; I10 Essential (primary) hypertension; E78.5 Hyperlipidemia, unspecified

== ENCOUNTER 2016-05-14 10:32 | Outpatient (CLI) | payer MEDICARE ==
[~2016-05-14 10:32] MED LIST changes: +LASIX40 MG PO; +MEDROL DOSE PACK4 MG PO; +RESTORIL15 MG PO; +VIBRAMYCIN 100100 MG PO
[2016-05-14] MEDS ORDERED: BUMEX2 MG PO (11:25)
[2016-05-14 12:13] VITALS: BP 156/66
--- NOTE | 2016-05-14 12:15 | NUR ---
1100-IN AND OUT URINARY CATHETER WITH 15FR. RED RUBBER STRAIGHT CATHETER, WITH MODERATE AMOUNT CLEEA YELLOW URINE. SPECIMINE OBTAINED & SENT TO LAB. ALL UNDER ASEPTIC TECHNIQUE.
[2016-05-14 12:21] LABS: APPEARANCE HAZY (CLEAR); BILIRUBIN NEGATIVE (NEGATIVE); COLOR YELLOW (YELLOW); GLUCOSE NEGATIVE (NEGATIVE); KETONE NEGATIVE (NEGATIVE); LEUKOCYTE ESTERASE NEGATIVE (NEGATIVE); NITRITE NEGATIVE (NEGATIVE); PROTEIN NEGATIVE (NEGATIVE); SPECIFIC GRAVITY 1.005 (1.005-1.020); UROBILINOGEN NORMAL (NORMAL)
== END 2016-05-14 11:35 ==
LOC: D.OPS 10:32
PROVIDERS: General Practice
DX: N39.0 Urinary tract infection, site not specified (principal)

== ENCOUNTER 2016-05-18 10:33 | Outpatient (CLI) | payer MEDICARE ==
--- NOTE | ~2016-05-18 | HEMODYNAMI ---
PATIENT:ISABELLA LONDONO MEDICAL RECORD: [id number] : 41 LOCATION:DDE ADMISSION DATE: 05/18/16 Generatedon:05/18/201615:06 Patient name: ISABELLA LONDONO Patient #: [id number] SSN: : 1945 Date of study: 05/18/2016 Page: Of Hemodynamic Procedure Report Patient Data Patient Demographics Procedure consent was obtained First Name: ISABELLA Gender: Female Last Name: BRY : 1945 Middle Initial: NAHID Age: 70 year(s) Patient #: [id number] Race: Unknown Additional ID: [id number] Contact details Address: [address] [place] [address] [facility] [place] [facility] Zip code: [address] Admission Admission Data Admission Date: 05/18/2016 Admission Time: 10:33 Procedure Procedure Types Cath Procedure Peripheral Cath Diagnostic Procedure Miscellaneous Procedure Description Procedure Date Procedure Date: 05/18/2016 Procedure Start Time: 14:08 Procedure Staff Name Function Demarcus Tuttle MD Performing Physician Alize Rivera RT Scrub Patricia Singer RN Nurse Marcin Burnett RT Monitor Procedure Data Cath Procedure Fluoroscopy Diagnostic fluoroscopy Total fluoroscopy Time: 7.1 time: 7.1 min min Diagnostic fluoroscopy Total fluoroscopy dose: 278 dose: 278 mGy mGy Procedure Medications Medication Administration Route Dosage Ancef (1Gm/50ml NS) I.V.P.B 1 g Hemodynamics Rest Heart Rate: 86 (bpm) Snapshots Pre Cath Intra NCS Post Cath Vital Signs Time Heart Resp SPO2 NIBP (mmHg) Rhythm Pain Sedation Rate (ipm) (%) Status Level (bpm) 14:00:12 86 19 99 139/66(106) NSR 0 (11) 10(A) , No pain 14:04:28 81 22 100 120/69(99) NSR 0 (11) 10(A) , No pain 14:08:37 84 21 99 129/56(91) NSR 0 (11) 9(A) , No pain 14:12:51 78 19 100 115/54(82) NSR 0 (11) 9(A) , No pain 14:16:59 79 18 99 109/54(75) NSR 0 (11) 9(A) , No pain 14:21:03 78 24 100 87/75(83) NSR 0 (11) 9(A) , No pain 14:25:05 76 19 99 103/46(64) NSR 0 (11) 9(A) , No pain 14:29:11 77 19 98 93/48(72) NSR 0 (11) 9(A) , No pain 14:33:14 74 16 99 89/42(63) NSR 0 (11) 9(A) , No pain 14:37:18 72 15 100 78/36(55) NSR 0 (11) 9(A) , No pain 14:41:18 73 15 99 91/42(64) NSR 0 (11) 9(A) , No pain 14:45:23 73 16 86/36(67) NSR 0 (11) 9(A) , No pain 14:49:25 71 15 88/42(63) NSR 0 (11) 9(A) , No pain 14:53:25 72 15 102/51(78) NSR 0 (11) 9(A) , No pain 14:57:33 110/31(96) NSR 0 (11) 9(A) , No pain 15:01:32 19 No Cuff NSR 0 (11) 9(A) , No pain 15:05:32 No Cuff NSR 0 (11) 9(A) , No pain Medications Time Medication Route Dose Verified Delivered Reason Notes Effectiv eness by by 14:08:24 Ancef I.V.P.B 1 g Patricia anesthesia used for (1Gm/50ml Enmanuel procedure NS) 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 Start room use. 13:41:06 Time tracking: Regular hours 13:41:11 Plan of Care:Hemodynamics will remain stable., Cardiac rhythm will remain stable., Comfort level will be maintained., Respiratory function will remain adequate., Patient/ family verbilizes understanding of procedure., Procedure tolerated without complication., Recovers from procedure without complications.. 13:41:18 Patient received from Outpatients to IR Alert and oriented. Tansferred to table in Prone position. 13:41:21 Signed procedure consent form obtained from patient. 13:41:22 ECG and BP/O2 sat monitors applied to patient. 13:41:24 Full Disclosure recording started 13:41:24 - 13:41:28 H&P Date Dictated: 05/18/2016 H&P Addendum completed by physician on day of procedure. (MUST COMPLETE FOR ALL OUTPATIENTS). 13:41:29 Pre-procedure instructions explained to patient. 13:41:29 Pre-op teaching completed and patient verbalized understanding. 13:41:30 Family in waiting room. 13:41:32 Patient NPO since Midnight. 13:48:28 SANDRA BENDER HERE FROM ANESTHESIA 13:48:29 - 13:48:57 SEE NOTE FROM ANESTHESIA FOR PRE PROCEDURE TIVA 13:49:06 Use device set IR Diagnostic 13:49:07 Sterile Angiographic Pack opened to sterile field. 13:49:08 Bag Decanter opened to sterile field. 13:50:00 Sharps counted by scrub and verified by R.N. 13:50:01 Alarms reviewed by R. N. 13:50:18 Lumbar area was prepped with dura-prep and draped in sterile fashion 13:59:00 Vital chart was started 13:59:01 Baseline sample Acquired. 13:59:32 Rhythm: sinus rhythm 14:00:22 Baseline sample Acquired. 14:06:52 Physician arrived 14:06:53 --------ALL STOP TIME OUT------ 14:06:54 Final Timeout: patient, procedure, and site verified with staff and physician. All members of the team are in agreement. 14:06:58 Lumbar site verified by team. 14:07:04 Physical assessment completed. ASA score P 3 - A patient with severe systemic disease as per Demarcus Tuttle MD. 14:07:09 Sedation plan: IV Moderate Sedation Propofol 14:08:10 Procedure started. 14:08:19 Local anesthetic to Lumbar area with Lidocaine 1% by Demarcus Tuttle MD.INITIAL ACCESS ONLY 14:08:24 Ancef (1Gm/50ml NS) 1 g I.V.P.B was administered by anesthesia; used fo r procedure; 14:09:00 Kyphon Epress Kit 15/2 opened to sterile field. 14:31:38 Kyphon BONE BX DEVICE SZ2 opened to sterile field. 14:50:50 Procedure ended.(Physican Out) 14:51:34 Fluoroscopy time 07.10 minutes. 14:51:39 Fluoroscopy dose: 278 mGy 14:51:39 Flurop Dose total: 278 14:51:41 Sharps counted by scrub and verified by R.N. 14:51:49 Post-op/insertion site Right Lumbar area dressed using a 4 x 4 and Tegaderm. 14:51:56 Post Lumbar area:stable 14:52:02 Post procedure rhythm: unchanged. 14:52:06 Post-procedure physical assessment completed. ASA score P 3 - A patient with severe systemic disease as per Demarcus Tuttle MD. 15:04:48 Post procedure instruction explained to patient.Patient verbalizes understanding. 15:04:50 Procedure and supply charges have been captured, reviewed, submitted an d are correct. 15:04:53 Report given to Outpatients. 15:04:56 Patient transfered to Outpatients with Bed. 15:06:14 Vital chart was stopped Device Usage Item Name Manufacture Quantity Catalog Hospital Part Current Minimal Lot# / Number Charge Number Stock Stock Serial# Code Sterile Cardinal 1 [id number] 5 Angiographic Health Pack Bag Decanter Microtek 1 [id number] 5 [employer] Kyphon Medtronic 1 [id number] 5 Epress Kit 15/2 Kyphon BONE Medtronic 1 [id number] 5 BX DEVICE SZ2 Signature Audit [place] Stage Time Signature Unsigned Intra-Procedure 05/18/2016 Marcin 3:06:11 PM Hortencia RT (R) (CV) Signatures Monitor : Marcin Signature : Hortencia RT Date : Time : [place] [id number] [facility] [place] [address]
[~2016-05-18 10:33] MED LIST changes: +BUMEX2 MG PO
[2016-05-18 12:56] LABS: BASOPHILS 0.3 % (0.0-2.0); EOSINOPHILS 3.5 % (0-7); HEMATOCRIT 35.3 % (36.0-48.0); HEMOGLOBIN 11.3 g/dL (12-16); IMMATURE GRANULOCYTES 0.8 % (0-5); LYMPHOCYTES 26.8 % (15-50); MCV 87.6 fL (80.0-100.0); MEAN PLATELET VOLUME 9.4 fL (7.4-10.4); MONOCYTES 11.2 % (2-11); NEUTROPHILS 57.4 % (40-80); PLATELET COUNT 398 10x3/uL (130-400); RBC 4.03 10x6/uL (4.00-5.40); RDW 17.7 % (11.5-14.5); WBC 9.7 10x3/uL (4.8-10.8)
[2016-05-18 13:13] LABS: INR 1.03 (0.85-1.17); PROTIME 13.4 SECONDS (11.6-15.0)
[2016-05-18 13:15] LABS: ANION GAP 18.5 mmol/L (8-16); CALCIUM 9.8 mg/dL (8.5-10.1); CARBON DIOXIDE 23.2 mmol/L (21.0-32.0); CREATININE - SERUM 1.1 mg/dL (0.6-1.3); POTASSIUM - SERUM 3.7 mmol/L (3.5-5.1)
[2016-05-18 13:16] LABS: APPEARANCE HAZY (CLEAR); BILIRUBIN NEGATIVE (NEGATIVE); COLOR YELLOW (YELLOW); GLUCOSE NEGATIVE (NEGATIVE); KETONE NEGATIVE (NEGATIVE); LEUKOCYTE ESTERASE NEGATIVE (NEGATIVE); NITRITE NEGATIVE (NEGATIVE); PROTEIN NEGATIVE (NEGATIVE); SPECIFIC GRAVITY 1.015 (1.005-1.020); UROBILINOGEN NORMAL (NORMAL)
[2016-05-18] MEDS ORDERED: XANAX0.25 MG PO (13:28)
[2016-05-18] MEDS ORDERED: POTASSIUM CHLO10 ME1 PO (13:29)
== END 2016-05-18 17:20 | disposition home or self-care (01) ==
LOC: D.OPS 10:33 → D.SP 13:00 → D.OPS 13:00
PROVIDERS: General Practice
DX: M51.36 Other intervertebral disc degeneration, lumbar region (principal)

== ENCOUNTER 2017-03-22 10:30 | Inpatient (IN) | payer MEDICARE ==
[~2017-03-22] VITALS: Ht 170.2 cm; Wt 54.0 kg
[~2017-03-22 10:30] MED LIST changes: +POTASSIUM CHLO10 ME1 PO; +XANAX0.25 MG PO
[2017-03-22 16:33] LABS: BASOPHILS 0.5 % (0-2); EOSINOPHILS 1.3 % (0-7); HEMATOCRIT 30.8 % (36.0-48.0); HEMOGLOBIN 9.9 g/dL (12-16); IMMATURE GRANULOCYTES 5.1 % (0-5); LYMPHOCYTES 12.7 % (15-50); MCH 25.8 pg (26.0-34.0); MCHC 32.1 g/dL (31.0-37.0); MCV 80.2 fL (80.0-100.0); MEAN PLATELET VOLUME 8.9 fL (7.4-10.4); NEUTROPHILS 72.4 % (40-80); RBC 3.84 10x6/uL (4.00-5.40); RDW 17.7 % (11.5-14.5); WBC 15.8 10x3/uL (4.8-10.8)
[2017-03-22 16:42] LABS: PLATELET COUNT 881 10x3/uL (130-400)
[2017-03-22 16:56] LABS: ALBUMIN 2.2 g/dL (3.4-5.0); BILIRUBIN - TOTAL 0.31 mg/dL (0.2-1.3); CALCIUM 8.4 mg/dL (8.5-10.1); CARBON DIOXIDE 22.6 mmol/L (21.0-32.0); CREATININE - SERUM 1.6 mg/dL (0.6-1.3); POTASSIUM - SERUM 3.6 mmol/L (3.5-5.1); PROTEIN - SERUM 7.2 g/dL (6.4-8.2)
[2017-03-22 22:58] VITALS: BP 116/51; BMI 18.6
[2017-03-22] MEDS ORDERED: KEFLEX500 MG PO (23:19)
[2017-03-22] MEDS ORDERED: PROAIR HFA8.5 GM INH (23:20)
[2017-03-23 04:00] VITALS: BP 120/47
[2017-03-23 05:17] LABS: BASOPHILS 0.3 % (0-2); EOSINOPHILS 1.4 % (0-7); HEMOGLOBIN 8.8 g/dL (12-16); IMMATURE GRANULOCYTES 4.4 % (0-5); LYMPHOCYTES 12.2 % (15-50); MCH 25.2 pg (26.0-34.0); MCHC 31.4 g/dL (31.0-37.0); MCV 80.2 fL (80.0-100.0); MEAN PLATELET VOLUME 8.8 fL (7.4-10.4); MONOCYTES 12.1 % (2-11); NEUTROPHILS 69.6 % (40-80); PLATELET COUNT 877 10x3/uL (130-400); RBC 3.49 10x6/uL (4.00-5.40); RDW 17.9 % (11.5-14.5); WBC 15.7 10x3/uL (4.8-10.8)
[2017-03-23 05:49] LABS: ALBUMIN 1.9 g/dL (3.4-5.0); BILIRUBIN - TOTAL 0.3 mg/dL (0.2-1.3); CALCIUM 7.9 mg/dL (8.5-10.1); CARBON DIOXIDE 21.7 mmol/L (21.0-32.0); CREATININE - SERUM 1.4 mg/dL (0.6-1.3); POTASSIUM - SERUM 3.7 mmol/L (3.5-5.1); PROTEIN - SERUM 6.6 g/dL (6.4-8.2)
[2017-03-23 08:56] VITALS: BP 127/52
[2017-03-23 11:06] VITALS: Ht 170.2 cm; Wt 54.0 kg
[2017-03-23 12:46] VITALS: BP 104/66; BP 162/72
[2017-03-23 16:12] VITALS: BP 129/69
[2017-03-23 20:00] VITALS: BP 125/77
[2017-03-24 04:00] VITALS: BP 106/106
[2017-03-24 08:28] VITALS: BP 121/48
== END 2017-03-24 16:00 | DRG 536 ==
LOC: D.ER 10:30 → D.MS 19:34
PROVIDERS: Family Medicine; Physician Assistant
DX: S32.592A Other specified fracture of left pubis, initial encounter for closed fracture (principal); M87.89 Other osteonecrosis, multiple sites; S32.591A Other specified fracture of right pubis, initial encounter for closed fracture; I10 Essential (primary) hypertension; I50.9 Heart failure, unspecified; E78.5 Hyperlipidemia, unspecified; I48.91 Unspecified atrial fibrillation; J43.9 Emphysema, unspecified

== ENCOUNTER 2017-03-24 15:43 | Inpatient (IN) | payer MEDICARE ==
--- NOTE | ~2017-03-24 | RHP ---
PATIENT: ISABELLA LONDONO MEDICAL RECORD: [id number] ACCOUNT: [id number] LOCATION:[facility]1118 : 41 ADMISSION DATE: 03/24/17 REHABILITATION HISTORY AND PHYSICAL EXAMINATION POST ADMISSION PHYSICIAN EXAMINATION POST-ADMISSION PHYSICAL EXAMINATION AND HISTORY AND PHYSICAL DATE OF ADMISSION: 03/24/2017 ADMITTING DIAGNOSIS: Bilateral superior and inferior pubic rami fractures. HISTORY OF PRESENT ILLNESS: The patient is admitted to the inpatient rehab for bilateral superior and inferior pubic rami fractures. A 71-year-old female patient with past medical history of COPD and chronic AFib, that presented with worsening hip pain. She had series of falls with compression fractures in the past. Recent MRI showed a possible sacral insufficiency fracture. She has been having worsening hip pain to the point that she was having difficulty ambulating. Two weeks prior to her acute hospital admit on 03/22, MRI and hip films indicated avascular necrosis bilaterally, left greater than right with noted superior and inferior rami fracture. She did fall about 3 months ago, but the pain did not get better for a while and is now worse. She cannot bear weight on her left hip without pain. She is working with physical therapy and staff with getting up to the bedside commode. She lives at home with her , he has a bad back himself, he cannot actually take care of her very well and is having problems getting her in and out of the car. She has avascular necrosis of bilateral hips, has been noted and evaluated by orthopedic surgeon and feels that she can have a left hip replacements in the future after healing and recuperating from her pelvic fracture. She states that she is having pain mainly in the groin area. She is moderately independent with mobility and moderately independent with her ADLs prior to admit. She says she is scared of falling and has not been able to shower very often, just wash-ups for bathing. She is currently set up for mod assist for ADLs and mod-to total assist for mobility. She would like to return home with her with prior level of functioning or better if possible. Comorbidities in this patient include fracture of superior and inferior pubic rami, status post spinal augmentation at L4 bilateral pubic rami fractures, chronic avascular necrosis of right hip and chronic avascular necrosis of the left, chronic emphysema, atrial fib, COPD, and CHF. PAST MEDICAL HISTORY: Significant for cataracts, hypertension, CHF, hyperlipidemia, fluid retention, emphysema, asthma, constipation, back pain, anxiety, chronic AFib, COPD, and pulmonary hypertension. PAST SURGICAL HISTORY: Includes pilonidal cyst on her eye, tonsillectomy and adenoidectomy. ALLERGIES: CODEINE, OXYCODONE, AND TRAMADOL. CURRENT MEDICATIONS: Include potassium 10 mEq daily, Restoril 15 mg at bedtime, DuoNeb 3 cc four times a day, Vasotec 20 mg b.i.d., diltiazem 90 mg b.i.d., Bumex 2 mg b.i.d., Lipitor 10 mg at bedtime, amiodarone 200 mg b.i.d., Xanax 0.25 mg t.i.d. p.r.n., Ventolin updrafts as needed, and polyethylene glycol 17 grams in 8 ounces of water daily. 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 FAMILY HISTORY: Noncontributory. SOCIAL HISTORY: The patient hopes to return back home and get back to her prior level of functioning. She does live with her . REVIEW OF SYSTEMS: GENERAL: Does complain of weakness and fatigue. HEENT: Denies cold, cough, or congestion. CARDIOVASCULAR: Denies chest pain. LUNGS: Did not complain of any shortness of breath. EXTREMITIES: Does complain of pain, especially in her left groin. PHYSICAL EXAMINATION: VITAL SIGNS: Stable. GENERAL: An elderly female, who is in no acute distress, alert upon exam. HEENT: Normocephalic and atraumatic. Mucosa moist. NECK: Supple. No lymphadenopathy. LUNGS: Clear at this time. HEART: Irregular rate and rhythm. ABDOMEN: Benign. EXTREMITIES: No clubbing, cyanosis, or edema. NEUROLOGIC: She seems intact. LABORATORY DATA: Admit blood work showed a white count of 14.2, H&H of 9.3 and 29.2, her MCV is 76.8, platelet count is 643. Sodium is 139, potassium 3.9, BUN and creatinine of 27 and 1.4, and blood sugar was noted to be 85. ASSESSMENT: This is a 71-year-old female patient admitted to the rehab with a working diagnosis of bilateral superior and inferior pubic rami fractures, complicated by avascular necrosis of bilateral hips. The patient has potential to make improvement. We will institute the following multidisciplinary therapies including, but not limited to physical, occupational, respiratory, speech, nutritional services, prosthetics and orthotics. Given her complex condition and risk for more complications, rehabilitation services cannot be provided at a low level of care such as a residential facility. PLAN: 1. Admit to [facility] for intensive inpatient therapy to include the following disciplines: A. Physical therapy to improve gait, all transfer skills and bed mobility to a modified independent level. B. Occupational therapy to improve activities of daily living to a modified independent level. C. Case management to assist with discharge planning and placement options. D. Nutrition to assist with nutritional needs. E. Rehabilitation nursing to assist in monitoring the patient's underlying medical conditions and to assist with any type of bowel or bladder management. 2. The patient's current medical care and medications will be continued. 3. The patient will be placed on standard fall precautions. 4. I am going to ahead and check a vitamin D and TSH on her. 5. We will discuss this patient during care team staff meeting this week. HISTORY AND PHYSICAL [id number] LONDONOISABELLA NAHID TRANSINT:[id number] Voice Confirmation ID: [id number] DOCUMENT ID: [id number] KELSIE notes whether there has been none or any medical/functional change since admission: - No change since preadmission screen. KELSIE attests patient continues to be appropriate for IRF: - Continues to be appropriate. GIL YING MD at 1055 CC: [id number] DICTATION DATE: 03/25/17830 PROCESS STRIPPER: 03/25/17915 DIS IN 04/06/17 [place] [id number] [place] [id number]
[~2017-03-24 15:43] MED LIST changes: +KEFLEX500 MG PO; +PROAIR HFA8.5 GM INH
[2017-03-24 17:51] VITALS: BP 140/48; BMI 18.0
[2017-03-24 20:30] VITALS: BP 127/73
[2017-03-25 06:37] LABS: BASOPHILS 0.4 % (0-2); EOSINOPHILS 1.6 % (0-7); HEMATOCRIT 29.2 % (36.0-48.0); HEMOGLOBIN 9.3 g/dL (12-16); IMMATURE GRANULOCYTES 4.5 % (0-5); LYMPHOCYTES 11.5 % (15-50); MCH 24.5 pg (26.0-34.0); MCHC 31.8 g/dL (31.0-37.0); MCV 76.8 fL (80.0-100.0); MEAN PLATELET VOLUME 9.7 fL (7.4-10.4); MONOCYTES 10.6 % (2-11); NEUTROPHILS 71.4 % (40-80); RDW 17.5 % (11.5-14.5); WBC 14.2 10x3/uL (4.8-10.8)
[2017-03-25 06:38] LABS: PLATELET COUNT 643 10x3/uL (130-400)
[2017-03-25 06:45] LABS: ANION GAP 16.1 mmol/L (8-16); CALCIUM 7.9 mg/dL (8.5-10.1); CARBON DIOXIDE 22.8 mmol/L (21.0-32.0); CREATININE - SERUM 1.4 mg/dL (0.6-1.3); POTASSIUM - SERUM 3.9 mmol/L (3.5-5.1)
[2017-03-25 08:00] VITALS: BP 114/43
[2017-03-25 10:05] VITALS: BMI 17.8
[2017-03-25 21:16] VITALS: BP 101/48
[2017-03-26 06:44] LABS: BASOPHILS 0.4 % (0-2); EOSINOPHILS 2.4 % (0-7); HEMATOCRIT 24.1 % (36.0-48.0); HEMOGLOBIN 7.7 g/dL (12-16); IMMATURE GRANULOCYTES 5.1 % (0-5); LYMPHOCYTES 13.8 % (15-50); MCV 78.2 fL (80.0-100.0); MEAN PLATELET VOLUME 9.1 fL (7.4-10.4); MONOCYTES 11.4 % (2-11); NEUTROPHILS 66.9 % (40-80); RBC 3.08 10x6/uL (4.00-5.40); RDW 17.4 % (11.5-14.5)
[2017-03-26 06:56] LABS: PLATELET COUNT 782 10x3/uL (130-400)
[2017-03-26 07:10] LABS: ANION GAP 18.3 mmol/L (8-16); CALCIUM 8.1 mg/dL (8.5-10.1); POTASSIUM - SERUM 4.3 mmol/L (3.5-5.1); THYROID STIMULATING HORMONE 6.66 uIU/mL (0.36-3.74)
[2017-03-26 08:35] VITALS: BP 117/51
[2017-03-26 20:00] VITALS: BP 118/61
[2017-03-27 08:23] LABS: BASOPHILS 0.5 % (0-2); EOSINOPHILS 2.9 % (0-7); HEMATOCRIT 25.7 % (36.0-48.0); HEMOGLOBIN 8.4 g/dL (12-16); IMMATURE GRANULOCYTES 4.8 % (0-5); LYMPHOCYTES 14.9 % (15-50); MCH 25.1 pg (26.0-34.0); MCHC 32.7 g/dL (31.0-37.0); MCV 76.9 fL (80.0-100.0); MEAN PLATELET VOLUME 9.5 fL (7.4-10.4); MONOCYTES 9.9 % (2-11); PLATELET COUNT 787 10x3/uL (130-400); RBC 3.34 10x6/uL (4.00-5.40); RDW 17.2 % (11.5-14.5); WBC 18.5 10x3/uL (4.8-10.8)
[2017-03-27 10:35] LABS: ANION GAP 14.1 mmol/L (8-16); CALCIUM 8.2 mg/dL (8.5-10.1); CARBON DIOXIDE 23.3 mmol/L (21.0-32.0); CREATININE - SERUM 1.8 mg/dL (0.6-1.3); POTASSIUM - SERUM 3.4 mmol/L (3.5-5.1)
[2017-03-27 14:28] VITALS: BP 145/46
[2017-03-27 21:41] VITALS: BP 128/61
[2017-03-28 08:37] VITALS: BP 120/47
[2017-03-28 19:34] VITALS: BP 118/42
[2017-03-29 08:00] VITALS: BP 111/45
[2017-03-29 10:58] LABS: BASOPHILS 0.6 % (0-2); HEMATOCRIT 28.1 % (36.0-48.0); IMMATURE GRANULOCYTES 5.9 % (0-5); LYMPHOCYTES 9.7 % (15-50); MCH 25.1 pg (26.0-34.0); MCV 78.3 fL (80.0-100.0); MONOCYTES 7.8 % (2-11); PLATELET COUNT 884 10x3/uL (130-400); RBC 3.59 10x6/uL (4.00-5.40); RDW 17.3 % (11.5-14.5); WBC 18.8 10x3/uL (4.8-10.8)
[2017-03-29 11:11] LABS: ANION GAP 14.6 mmol/L (8-16); CALCIUM 8.3 mg/dL (8.5-10.1); CARBON DIOXIDE 23.1 mmol/L (21.0-32.0); CREATININE - SERUM 1.7 mg/dL (0.6-1.3); POTASSIUM - SERUM 4.7 mmol/L (3.5-5.1)
[2017-03-29 19:45] VITALS: BP 131/64
[2017-03-30] VITALS (14 sets, daily range): BP systolic 116–151; BP diastolic 37–87
[2017-03-30 07:15] LABS: HEMATOCRIT 24.4 % (36.0-48.0); LYMPHOCYTES 13.1 % (15-50); MCH 25.9 pg (26.0-34.0); MCHC 32.8 g/dL (31.0-37.0); MEAN PLATELET VOLUME 9.3 fL (7.4-10.4); NEUTROPHILS 75.7 % (40-80); PLATELET COUNT 808 10x3/uL (130-400); RBC 3.09 10x6/uL (4.00-5.40); RDW 17.8 % (11.5-14.5); WBC 15.7 10x3/uL (4.8-10.8)
[2017-03-30 07:22] LABS: ANION GAP 15.9 mmol/L (8-16); CALCIUM 7.8 mg/dL (8.5-10.1); CARBON DIOXIDE 21.4 mmol/L (21.0-32.0); CREATININE - SERUM 1.5 mg/dL (0.6-1.3)
[2017-03-30 07:23] LABS: POTASSIUM - SERUM 3.3 mmol/L (3.5-5.1)
[2017-03-31 00:10] VITALS: BP 135/56
[2017-03-31 06:42] LABS: BASOPHILS 0.5 % (0-2); EOSINOPHILS 3.6 % (0-7); IMMATURE GRANULOCYTES 7.2 % (0-5); LYMPHOCYTES 13.5 % (15-50); MCH 25.7 pg (26.0-34.0); MCHC 32.6 g/dL (31.0-37.0); MCV 78.7 fL (80.0-100.0); MEAN PLATELET VOLUME 9.5 fL (7.4-10.4); MONOCYTES 11.6 % (2-11); NEUTROPHILS 63.6 % (40-80); PLATELET COUNT 788 10x3/uL (130-400); RDW 17.1 % (11.5-14.5); WBC 13.2 10x3/uL (4.8-10.8)
[2017-03-31 06:44] LABS: HEMATOCRIT 32.5 % (36.0-48.0); HEMOGLOBIN 10.6 g/dL (12-16); RBC 4.13 10x6/uL (4.00-5.40)
[2017-03-31 07:04] LABS: CALCIUM 7.3 mg/dL (8.5-10.1); CREATININE - SERUM 1.5 mg/dL (0.6-1.3)
[2017-03-31 08:07] VITALS: BP 137/45
[2017-03-31 20:37] VITALS: BP 137/56
[2017-04-01 08:00] VITALS: BP 141/52
[2017-04-01 22:09] VITALS: BP 122/53
[2017-04-02 06:25] LABS: BASOPHILS 0.4 % (0-2); EOSINOPHILS 1.9 % (0-7); HEMOGLOBIN 10.4 g/dL (12-16); IMMATURE GRANULOCYTES 4.8 % (0-5); LYMPHOCYTES 11.3 % (15-50); MCHC 32.5 g/dL (31.0-37.0); MONOCYTES 14.1 % (2-11); NEUTROPHILS 67.5 % (40-80); PLATELET COUNT 685 10x3/uL (130-400); RDW 17.9 % (11.5-14.5); WBC 15.3 10x3/uL (4.8-10.8)
[2017-04-02 06:36] LABS: ANION GAP 13.8 mmol/L (8-16); CARBON DIOXIDE 25.1 mmol/L (21.0-32.0); CREATININE - SERUM 1.2 mg/dL (0.6-1.3); POTASSIUM - SERUM 3.9 mmol/L (3.5-5.1)
[2017-04-02 06:59] LABS: CALCIUM 7.5 mg/dL (8.5-10.1)
[2017-04-02 08:29] VITALS: BP 130/48
[2017-04-02 20:36] VITALS: BP 114/72
[2017-04-03 07:55] VITALS: BP 129/51
[2017-04-04 01:16] VITALS: BP 135/54
[2017-04-04 09:00] VITALS: BP 124/50
[2017-04-05 00:33] VITALS: BP 142/49
[2017-04-05 05:17] LABS: BASOPHILS 0.3 % (0-2); HEMATOCRIT 34.4 % (36.0-48.0); HEMOGLOBIN 11.2 g/dL (12-16); IMMATURE GRANULOCYTES 4.4 % (0-5); LYMPHOCYTES 12.7 % (15-50); MCH 26.2 pg (26.0-34.0); MCHC 32.6 g/dL (31.0-37.0); MCV 80.6 fL (80.0-100.0); MEAN PLATELET VOLUME 9.2 fL (7.4-10.4); MONOCYTES 12.5 % (2-11); NEUTROPHILS 67.1 % (40-80); PLATELET COUNT 690 10x3/uL (130-400); RBC 4.27 10x6/uL (4.00-5.40); RDW 18.1 % (11.5-14.5); WBC 14.2 10x3/uL (4.8-10.8)
[2017-04-05 05:38] LABS: ANION GAP 13.6 mmol/L (8-16); CALCIUM 8.6 mg/dL (8.5-10.1); CARBON DIOXIDE 25.7 mmol/L (21.0-32.0); CREATININE - SERUM 1.2 mg/dL (0.6-1.3); POTASSIUM - SERUM 3.3 mmol/L (3.5-5.1)
[2017-04-05] MEDS ORDERED: LEVOXYL100 MCG PO (08:15)
[2017-04-05] MEDS ORDERED: K-DUR20 MEQ PO (08:15)
[2017-04-05 19:00] VITALS: BP 141/49
[2017-04-06 08:50] VITALS: BP 106/64
== END 2017-04-06 11:35 | disposition home health service (06) | DRG 536 ==
LOC: D.REHAB 15:43
PROVIDERS: Emergency Medicine
DX: S32.810A Multiple fractures of pelvis with stable disruption of pelvic ring, initial encounter for closed fracture (principal); M87.9 Osteonecrosis, unspecified; E87.2 Acidosis; J43.9 Emphysema, unspecified; I48.91 Unspecified atrial fibrillation; I50.9 Heart failure, unspecified; W19.XXXA Unspecified fall, initial encounter; E87.70 Fluid overload, unspecified; I11.0 Hypertensive heart disease with heart failure

== ENCOUNTER → 2017-04-18 10:42 | Outpatient (CLI) | payer MEDICARE ==
[2017-03-25 10:05] VITALS: BMI 17.8
[~2017-04-18 10:42] MED LIST changes: +FLAGYL500 MG PO; +K-DUR20 MEQ PO; +LEVOXYL100 MCG PO; +NEURONTIN 300300 MG PO; +PARAFON FORTE500 MG PO; +SOMA350 MG PO
== END | disposition home or self-care (01) ==
LOC: D.LABREF 10:42 → D.LDO 10:42
DX: R19.7 Diarrhea, unspecified (principal)

== ENCOUNTER 2017-04-23 11:00 | Inpatient (IN) | payer MEDICARE ==
[~2017-04-23] VITALS: Ht 165.1 cm; Wt 58.0 kg
--- NOTE | ~2017-04-23 | CN ---
PATIENT NAME:ISABELLA PATE MEDICAL RECORD: [id number] : 41 LOCATION:YONY.2308 ADMIT DATE: 04/23/17 ACCOUNT: [id number] CONSULTING PHYSICIAN: MARLON YEBOAH MD REFERRING PHYSICIAN: MELECIO WYMAN MD DATE OF CONSULTATION: 04/29/2017 CONSULT REQUESTING PHYSICIAN: Melecio Wyman MD (Bill) REASON FOR CONSULTATION: Acute exacerbation of chronic obstructive pulmonary disease, pneumonia, and C. diff colitis. HISTORY OF PRESENT ILLNESS: Ms. Pate is a 71-year-old female, very well known to me with a history of pulmonary hypertension, CHF, COPD, and chronic hypoxic respiratory failure. The patient was admitted with Clostridium difficile colitis. Chest radiograph showed she has upper lobe infiltrate. She also has small bilateral pleural effusions. According to the patient, she has some cough with production of very little sputum. Denies any fever or chill. There are no night sweats. REVIEW OF SYSTEMS: Mainly in the history of present illness. PAST MEDICAL HISTORY: 1. Hypertension. 2. COPD. 3. Chronic hypoxic respiratory failure. 4. Hyperlipidemia. 5. Atrial fibrillation. 6. Secondary pulmonary hypertension with a PA pressure of 45. PAST SURGICAL HISTORY: 1. She has a T&A. 2. Pilonidal cyst removed. ALLERGIES: SHE IS ALLERGIC TO CODEINE. PRESENT MEDICATIONS: She is on Zosyn IV, vancomycin p.o., albuterol/ipratropium nebulizer. Her other medication is reviewed. PERSONAL AND SOCIAL HISTORY: The patient is an ex-smoker. She is a nondrinker. FAMILY HISTORY: Noncontributory. PHYSICAL EXAMINATION: GENERAL: Now, the patient is lying comfortably in bed. She is not in acute distress. VITAL SIGNS: The blood pressure is 109/48, pulse is 75, respirations 20, temperature 97.5, and SPO2 is 97% on 2.5 liter nasal cannula. HEENT: Conjunctivae is pink, sclerae nonicteric. NECK: Supple, no JVD. CHEST: The chest excursion is minimal on both sides of bilateral crackles, wheeze on forceful expiration. HEART: Rhythm regular. There is II/ systolic murmur. ABDOMEN: Soft. Bowel sounds present. No hepatosplenomegaly. RECTAL: Deferred. CONSULT REPORT [id number] ISABELLA PATE EXTREMITIES: No cyanosis, no clubbing. There is 1+ pedal edema. IMAGING: Chest radiograph on the 26 of April, there is patchy consolidation of the right upper lobe. There are diffuse increased interstitial prominence bilaterally. There are small bilateral pleural effusions. LABORATORY DATA: CBC: The WBC is 28.6, hemoglobin 9.3, hematocrit 30.2, platelet count is 735. Chemistry: Sodium 142, potassium 3.2, chloride 113, BUN is 5, creatinine 0.7. IMPRESSION: 1. Oyucg-mj-lskqrmd hypoxic respiratory failure. 2. Pneumonia, right upper lobe, most likely community-acquired pneumonia. 3. Clostridium difficile colitis. 4. Leukocytosis. 5. Pulmonary edema, bilateral pleural effusion. 6. Congestive heart failure. 7. Secondary pulmonary hypertension. RECOMMENDATION: 1. I will check the cardiac echo. 2. Continue Zosyn. I will add doxycycline for gram-positive as well as atypical. 3. Albuterol, ipratropium nebulizer. 4. Brovana, budesonide nebulizer. 5. Continue p.o. vancomycin. 6. Start her on Lasix. 7. Supplemental oxygen. Dr. Wyman, thank you for involving me in the care of Ms. Pate. TRANSINT:[id number] Voice Confirmation ID: [id number] DOCUMENT ID: [id number] MARLON YEBOAH MD at 1410 CC: MELECIO WYMAN MD [id number] DICTATION DATE: 04/29/17 1450 IMAGING ACCOUNT MANAGER: 04/29/17 1520 ADM IN [place] [id number] [place] [id number]
--- NOTE | ~2017-04-23 | CN ---
PATIENT NAME:ISABELLA LONDONO MEDICAL RECORD: [id number] : 41 LOCATION:LOISD.2308 ADMIT DATE: 04/23/17 ACCOUNT: [id number] CONSULTING PHYSICIAN: GREG INGRAM MD REFERRING PHYSICIAN: CECY WYMAN MD DATE OF CONSULTATION: 05/11/2017 CHIEF COMPLAINT: Failed a swallowing evaluation. The patient has acute malnutrition. She failed a swallowing evaluation. She is to undergo placement of a PEG tube. The risks, possible complications, and alternatives to the procedure were explained to the patient. She consented to the procedure. Symptoms have come on gradually. They are difficult to characterize. This is a consultation note addendum. For the typed portion of the consult note, please see the chart. This would include past medical and surgical history, current medications, allergies, and social history as well as family history. REVIEW OF SYSTEMS: Difficult to obtain from this patient. She is verbal; however, it is my impression that there has been some loss of higher cortical functioning. She is very weak. PHYSICAL EXAMINATION: GENERAL: The patient appears acutely ill. Also appears chronically ill. VITAL SIGNS: Reviewed. The entire physical examination was performed with the presence of a female nurse. HEAD: External ears appear normal. There is bilateral temporal wasting. EYES: Extraocular movements are intact. NECK: Trachea is midline. CHEST: There are intercostal retractions. Mildly labored. ABDOMEN: Scaphoid. There is an umbilical hernia, which is small. EXTREMITIES: Peripheral cyanosis is present. INTEGUMENTARY: There is an intertriginous rash. BACK: Mild thoracic kyphosis is noted. LYMPHATICS: No lymphangitic streaking of the exposed extremities. IMPRESSION: 1. Acute malnutrition. 2. Failed swallowing evaluation. PLAN: PEG tube placement today. TRANSINT:[id number] Voice Confirmation ID: [id number] DOCUMENT ID: [id number] GREG INGRAM MD at 5264 CC: MARLON YEBOAH MD and CECY WYMAN MD [id number] DICTATION DATE: 05/11/17 1441 ASSET MANAGEMENT COORDINATOR: 05/11/17 1526 DIS IN 05/14/17 [place] [id number] [place] [address]
--- NOTE | ~2017-04-23 | OP ---
PATIENT NAME: ISABELLA LONDONO MEDICAL RECORD: [id number] :41 LOCATION:D.[facility] D.2308 ADMISSION DATE:04/23/17 SURGEON: GREG INGRAM MD DATE OF OPERATION: 05/11/2017 PREOPERATIVE DIAGNOSES: 1. Failed swallowing evaluation. 2. Acute malnutrition. POSTOPERATIVE DIAGNOSES: 1. Failed swallowing evaluation. 2. Acute malnutrition. 3. Thick secretions in the hypopharynx. 4. Diffuse mild love gastritis. PROCEDURES: 1. Esophagogastroduodenoscopy with antral biopsies. 2. Percutaneous endoscopic gastrostomy tube placement, 20-Albanian. SURGEON: Greg Ingram MD BABY SITTER: None. BLOOD LOSS: Minimal. ANESTHESIA: Local with IV sedation. COMPLICATIONS: None. The risks, possible complications and alternatives to procedure were explained to the patient. She elects to proceed. ENDOSCOPIC COURSE: The patient was conveyed to the endoscopy suite electively on 05/11/2017. IV sedation was induced by the anesthesia staff. The abdomen was sterilely prepped and draped. A bite block was inserted. A gastroscope was inserted through the biteblock into the hypopharynx. The esophagus was easily intubated as were the stomach and duodenum. Upon withdrawal, retroflexed and angulus views were obtained. Antral biopsies were obtained. I was able to transilluminate the abdominal wall. A local anesthetic was used to infiltrate the skin and subcutaneous tissues in the left upper quadrant. An incision was accomplished. Through this incision, I advanced an Angiocath and punctured the anterior surface of the stomach on the first try. A guidewire was advanced down through the Angiocath. This was grasped with an endoscopic snare. The gastroscope was then withdrawn out through the mouth. The pull-type gastrostomy tube was then pulled into place along with the wire. I then re-endoscoped the patient's esophagus and stomach to ensure that no false passage or perforation had occurred. Indeed, there had been no false passage or perforation. The gastroscope was then withdrawn under direct vision. Hub and flange devices were attached. The patient was then conveyed back to her room. I was unable to identify any family members here at the hospital. OPERATIVE REPORT [id number] ISABELLA LONDONO TRANSINT:[id number] Voice Confirmation ID: [id number] DOCUMENT ID: [id number] GREG INGRAM MD at 1518 CC: MARLON YEBOAH MD and CECY WYMAN MD [id number] DICTATION DATE: 05/11/17 1443 GOSPEL SINGER: 05/11/17 1500 DIS IN 05/14/17 [place] [id number] [place] [address]
--- NOTE | ~2017-04-23 | HP ---
PATIENT: ISABELLA LONDONO MEDICAL RECORD: [id number] ACCOUNT: [id number] LOCATION:D. D.2101 : 41 ADMISSION DATE: 04/23/17 HISTORY AND PHYSICAL EXAMINATION CHIEF COMPLAINT: Diarrhea and weakness. HISTORY OF PRESENT ILLNESS: This is a 71-year-old white female who presents to my office with increased weakness and diarrhea. She is not eating solid foods. She is losing weight. She was recently hospitalized last month with a pelvic fracture after a fall. She also had avascular necrosis of both hips. She spent time in inpatient rehabilitation, got stronger, and went home. She really was not doing too well there. She was not eating well. She started having diarrhea and through home health, we checked stool and she was positive for Clostridium difficile. She was started on Flagyl 4 days ago and has not gotten better and now is very weak and she is now directly admitted to the hospital for further care. PAST MEDICAL AND SURGICAL HISTORY: Hypertension, CHF, hyperlipidemia, pulmonary hypertension, emphysema, asthma, anxiety, recent pelvic fracture due to a fall, and avascular necrosis of the hips. PAST SURGICAL HISTORY: Cataract surgery, repair of a torn retina in the left eye, tonsillectomy, pilonidal cyst repair. ALLERGIES: TRAMADOL, CODEINE, AND OXYCODONE. HABITS: She is a former smoker. 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 FAMILY HISTORY: Cardiovascular disease and strokes. HOME MEDICATIONS: Listed under MAR. REVIEW OF SYSTEMS: GENERAL: She has lost weight and stamina. HEENT: No particular sinus or allergy problems. RESPIRATORY: Has history of COPD, seems to be doing okay now. CARDIAC: Has history of congestive heart failure. GASTROINTESTINAL: Has had some reflux. GENITOURINARY: No significant problems there. MUSCULOSKELETAL: Has generalized weakness and has sacral insufficiency fractures as well as avascular necrosis of her hips. NEUROLOGIC: Denies seizures or migraines. PSYCHIATRIC: She has anxiety and is probably depressed. PHYSICAL EXAMINATION: VITAL SIGNS: Temperature 97.2, pulse 71, respirations 18, blood pressure 107/57, O2 sat 98% on room air. GENERAL: She is awake and alert. She is thin. HEENT: Grossly within normal limits. NECK: Supple. No JVD or bruit. HEART: Regular rate and rhythm. LUNGS: No wheezes today. HISTORY AND PHYSICAL [id number] ISABELLA LONDONO NAHID ABDOMEN: With mild generalized epigastric tenderness. No guarding, no rebound, no mass. EXTREMITIES: No edema at this time. LABORATORY DATA: CBC with a white count of 14,700, hemoglobin 11.5, hematocrit 35, platelets 591,000. Basic metabolic panel is okay except BUN and creatinine of 30 and 1.6 respectively. Liver enzymes are all normal. TSH is high at 5.33 and her free T4 also is elevated reportedly at 2.7. ASSESSMENT: 1. Clostridium difficile diarrhea. 2. Weakness. PLAN: We will continue Flagyl and consider starting vancomycin. We will start meds to help slow down diarrhea, have physical therapy to mobilize. Other tests and procedures as warranted. TRANSINT:[id number] Voice Confirmation ID: [id number] DOCUMENT ID: [id number] CECY WYMAN MD at 1826 CC: [id number] DICTATION DATE: 04/25/17 0117 BEE KEEPER: 04/25/17 0801 ADM IN [facility] [address] [place] [id number]
[~2017-04-23 11:00] MED LIST changes: -FLAGYL500 MG PO; -NEURONTIN 300300 MG PO; -PARAFON FORTE500 MG PO; -SOMA350 MG PO
[2017-04-23] MEDS ORDERED: FLAGYL500 MG PO (12:11)
[2017-04-23 12:20] VITALS: BP 107/57; BMI 19.0
[2017-04-23 13:38] LABS: BASOPHILS 0.2 % (0-2); EOSINOPHILS 0.1 % (0-7); HEMOGLOBIN 11.5 g/dL (12-16); IMMATURE GRANULOCYTES 5.2 % (0-5); LYMPHOCYTES 8.2 % (15-50); MCH 25.7 pg (26.0-34.0); MCHC 32.9 g/dL (31.0-37.0); MCV 78.3 fL (80.0-100.0); NEUTROPHILS 77.3 % (40-80); PLATELET COUNT 591 10x3/uL (130-400); RBC 4.47 10x6/uL (4.00-5.40); RDW 17.5 % (11.5-14.5); WBC 14.7 10x3/uL (4.8-10.8)
[2017-04-23 14:09] LABS: ALBUMIN 2.2 g/dL (3.4-5.0); CALCIUM 8.6 mg/dL (8.5-10.1); CARBON DIOXIDE 21.8 mmol/L (21.0-32.0); CREATININE - SERUM 1.6 mg/dL (0.6-1.3); PROTEIN - SERUM 6.5 g/dL (6.4-8.2); T4 THYROXIN - FREE 2.7 ng/dL (0.76-1.46); THYROID STIMULATING HORMONE 5.33 uIU/mL (0.36-3.74)
[2017-04-23 14:10] LABS: ANION GAP 18.5 mmol/L (8-16); BILIRUBIN - TOTAL 0.55 mg/dL (0.2-1.3); POTASSIUM - SERUM 4.3 mmol/L (3.5-5.1)
[2017-04-23 15:16] VITALS: BP 109/47
[2017-04-23 20:00] VITALS: BP 127/54
[2017-04-24 04:00] VITALS: BP 107/52
[2017-04-24 09:16] VITALS: BMI 18.3
[2017-04-24 09:47] VITALS: BP 98/43
[2017-04-24 12:42] VITALS: BP 112/52
[2017-04-24 18:13] VITALS: BP 92/48
[2017-04-24 21:35] VITALS: BP 110/49
[2017-04-25 01:24] VITALS: BP 135/57
[2017-04-25 06:02] LABS: HEMATOCRIT 28.6 % (36.0-48.0); HEMOGLOBIN 9.2 g/dL (12-16); MCH 25.4 pg (26.0-34.0); MCHC 32.2 g/dL (31.0-37.0); MEAN PLATELET VOLUME 9.2 fL (7.4-10.4); PLATELET COUNT 866 10x3/uL (130-400); RBC 3.62 10x6/uL (4.00-5.40); RDW 17.6 % (11.5-14.5)
[2017-04-25 06:10] LABS: ANION GAP 16.4 mmol/L (8-16); CALCIUM 7.8 mg/dL (8.5-10.1); CARBON DIOXIDE 19.6 mmol/L (21.0-32.0); CREATININE - SERUM 1.2 mg/dL (0.6-1.3)
[2017-04-25 06:30] VITALS: BP 158/55
[2017-04-25 06:45] LABS: EOSINOPHILS 2 % (0-7); LYMPHOCYTES 19 % (15-50); MONOCYTES 5 % (2-11); NEUTROPHILS 72 % (40-80); PLATELET ESTIMATE INCREASED; PLATELET MORPHOLOGY GIANT PLTS PRESENT
[2017-04-25 09:10] VITALS: BP 124/64
[2017-04-25 13:41] VITALS: BP 122/59
[2017-04-25 16:18] VITALS: BP 118/48
[2017-04-25 20:43] VITALS: BP 112/59
[2017-04-26 02:27] VITALS: BP 175/52
[2017-04-26 06:30] LABS: BASOPHILS 0.3 % (0-2); EOSINOPHILS 0.9 % (0-7); IMMATURE GRANULOCYTES 6.7 % (0-5); LYMPHOCYTES 10.7 % (15-50); MCH 25.9 pg (26.0-34.0); MCHC 32.3 g/dL (31.0-37.0); MCV 80.3 fL (80.0-100.0); MEAN PLATELET VOLUME 9.3 fL (7.4-10.4); MONOCYTES 9.7 % (2-11); NEUTROPHILS 71.7 % (40-80); PLATELET COUNT 926 10x3/uL (130-400); RBC 3.86 10x6/uL (4.00-5.40); RDW 18.1 % (11.5-14.5); WBC 20.5 10x3/uL (4.8-10.8)
[2017-04-26 06:46] LABS: ANION GAP 15.9 mmol/L (8-16); CALCIUM 7.9 mg/dL (8.5-10.1); CARBON DIOXIDE 18.2 mmol/L (21.0-32.0); POTASSIUM - SERUM 3.1 mmol/L (3.5-5.1)
[2017-04-26 06:47] LABS: CREATININE - SERUM 0.8 mg/dL (0.6-1.3)
[2017-04-26 09:19] VITALS: BP 127/58
[2017-04-26 11:39] VITALS: BP 122/80
[2017-04-26 15:32] VITALS: BP 104/35
[2017-04-26 19:00] VITALS: BP 107/58
[2017-04-27] VITALS: BP 148/108
[2017-04-27 01:40] LABS: APPEARANCE HAZY (CLEAR); BILIRUBIN NEGATIVE (NEGATIVE); COLOR YELLOW (YELLOW); GLUCOSE NEGATIVE (NEGATIVE); KETONE NEGATIVE (NEGATIVE); NITRITE POSITIVE (NEGATIVE); PROTEIN TRACE mg/dL (NEGATIVE); SPECIFIC GRAVITY 1.015 (1.005-1.020); UROBILINOGEN NORMAL (NORMAL)
[2017-04-27 01:41] LABS: BACTERIA MODERATE /hpf (NONE SEEN); EPITHELIAL CELLS 0-5 /hpf (0-5); RED CELLS - URINE 0-5 /hpf (0-5); YEAST <1+ /hpf (NONE SEEN)
[2017-04-27 04:00] VITALS: BP 136/57
[2017-04-27 06:04] LABS: BASOPHILS 0.5 % (0-2); EOSINOPHILS 1.1 % (0-7); HEMATOCRIT 29.6 % (36.0-48.0); HEMOGLOBIN 9.4 g/dL (12-16); IMMATURE GRANULOCYTES 7.5 % (0-5); LYMPHOCYTES 10.3 % (15-50); MCH 25.5 pg (26.0-34.0); MCHC 31.8 g/dL (31.0-37.0); MCV 80.4 fL (80.0-100.0); MEAN PLATELET VOLUME 9.2 fL (7.4-10.4); MONOCYTES 10.6 % (2-11); PLATELET COUNT 858 10x3/uL (130-400); RBC 3.68 10x6/uL (4.00-5.40); RDW 18.1 % (11.5-14.5); WBC 16.7 10x3/uL (4.8-10.8)
[2017-04-27 06:17] LABS: ANION GAP 16.1 mmol/L (8-16); CALCIUM 7.7 mg/dL (8.5-10.1); CARBON DIOXIDE 18.1 mmol/L (21.0-32.0); CREATININE - SERUM 0.9 mg/dL (0.6-1.3); POTASSIUM - SERUM 3.2 mmol/L (3.5-5.1)
[2017-04-27 08:14] VITALS: BP 121/50
[2017-04-27 11:53] VITALS: BP 118/60
[2017-04-27 16:29] VITALS: BP 100/65
[2017-04-27 19:00] VITALS: BP 124/58
[2017-04-28 03:41] VITALS: BP 114/73
[2017-04-28 04:00] VITALS: BP 140/63
[2017-04-28 05:51] LABS: BASOPHILS 0.4 % (0-2); EOSINOPHILS 1.4 % (0-7); HEMATOCRIT 30.5 % (36.0-48.0); HEMOGLOBIN 9.7 g/dL (12-16); IMMATURE GRANULOCYTES 6.2 % (0-5); LYMPHOCYTES 9.7 % (15-50); MCH 25.7 pg (26.0-34.0); MCHC 31.8 g/dL (31.0-37.0); MCV 80.7 fL (80.0-100.0); MEAN PLATELET VOLUME 9.7 fL (7.4-10.4); MONOCYTES 10.2 % (2-11); NEUTROPHILS 72.1 % (40-80); PLATELET COUNT 797 10x3/uL (130-400); RBC 3.78 10x6/uL (4.00-5.40); RDW 18.4 % (11.5-14.5); WBC 18.1 10x3/uL (4.8-10.8)
[2017-04-28 06:15] LABS: CALC OSMOLALITY 275 mosm/kg (275-300); CALCIUM 7.5 mg/dL (8.5-10.1); CARBON DIOXIDE 18.5 mmol/L (21.0-32.0); CHLORIDE - SERUM 110 mmol/L (98-107); CREATININE - SERUM 0.7 mg/dL (0.6-1.3); GLUCOSE 84 mg/dL (74-106); SODIUM 140 mmol/L (136-145); UREA NITROGEN 6 mg/dL (7-18); eGFR NON AFRICAN AMERICAN 87 mL/min (90-120)
[2017-04-28 06:16] LABS: POTASSIUM - SERUM 3.8 mmol/L (3.5-5.1)
[2017-04-28 08:39] VITALS: BP 169/75
[2017-04-28 11:10] VITALS: BP 131/54
[2017-04-28 15:06] VITALS: BP 115/47
[2017-04-28 19:00] VITALS: BP 140/60
[2017-04-29 04:00] VITALS: BP 137/69
[2017-04-29 06:53] LABS: CALC OSMOLALITY 279 mosm/kg (275-300); CALCIUM 8.2 mg/dL (8.5-10.1); CARBON DIOXIDE 17.6 mmol/L (21.0-32.0); CHLORIDE - SERUM 113 mmol/L (98-107); CREATININE - SERUM 0.7 mg/dL (0.6-1.3); GLUCOSE 95 mg/dL (74-106); SODIUM 142 mmol/L (136-145); UREA NITROGEN 5 mg/dL (7-18); eGFR NON AFRICAN AMERICAN 87 mL/min (90-120)
[2017-04-29 07:03] LABS: POTASSIUM - SERUM 3.2 mmol/L (3.5-5.1)
[2017-04-29 07:07] LABS: BASOPHILS 0.2 % (0-2); EOSINOPHILS 0.4 % (0-7); HEMATOCRIT 30.2 % (36.0-48.0); HEMOGLOBIN 9.3 g/dL (12-16); IMMATURE GRANULOCYTES 2.9 % (0-5); LYMPHOCYTES 5.5 % (15-50); MCH 25.3 pg (26.0-34.0); MCHC 30.8 g/dL (31.0-37.0); MCV 82.3 fL (80.0-100.0); MEAN PLATELET VOLUME 9.3 fL (7.4-10.4); MONOCYTES 6.6 % (2-11); NEUTROPHILS 84.4 % (40-80); PLATELET COUNT 735 10x3/uL (130-400); RBC 3.67 10x6/uL (4.00-5.40); RDW 18.6 % (11.5-14.5); WBC 28.6 10x3/uL (4.8-10.8)
[2017-04-29 07:44] VITALS: BP 143/65
[2017-04-29 12:29] VITALS: BP 109/48
[2017-04-29 15:09] VITALS: BP 118/52
[2017-04-29 20:00] VITALS: BP 148/66
[2017-04-30 04:00] VITALS: BP 107/56
[2017-04-30 06:01] LABS: HEMATOCRIT 27.7 % (36.0-48.0); HEMOGLOBIN 8.9 g/dL (12-16); MCHC 32.1 g/dL (31.0-37.0); MEAN PLATELET VOLUME 9.3 fL (7.4-10.4); PLATELET COUNT 638 10x3/uL (130-400); RBC 3.42 10x6/uL (4.00-5.40); RDW 18.8 % (11.5-14.5); WBC 26.1 10x3/uL (4.8-10.8)
[2017-04-30 06:21] LABS: ANION GAP 15.6 mmol/L (8-16); CALCIUM 7.8 mg/dL (8.5-10.1); CARBON DIOXIDE 17.6 mmol/L (21.0-32.0); CREATININE - SERUM 0.8 mg/dL (0.6-1.3); MAGNESIUM - SERUM 1.2 mg/dL (1.8-2.4); POTASSIUM - SERUM 3.2 mmol/L (3.5-5.1)
[2017-04-30 06:27] LABS: LYMPHOCYTES 8 % (15-50); MONOCYTES 3 % (2-11); NEUTROPHILS 89 % (40-80); PLATELET ESTIMATE INCREASED
[2017-04-30 09:19] VITALS: BP 128/51
[2017-04-30 12:46] VITALS: BP 112/51
[2017-04-30 16:04] VITALS: BP 110/54
[2017-04-30 20:00] VITALS: BP 127/49
[2017-05-01 04:00] VITALS: BP 108/48
[2017-05-01 05:41] LABS: BASOPHILS 0.2 % (0-2); EOSINOPHILS 0.1 % (0-7); HEMATOCRIT 27.2 % (36.0-48.0); HEMOGLOBIN 8.7 g/dL (12-16); IMMATURE GRANULOCYTES 3.3 % (0-5); LYMPHOCYTES 4.6 % (15-50); MCH 25.3 pg (26.0-34.0); MCV 79.1 fL (80.0-100.0); MEAN PLATELET VOLUME 9.4 fL (7.4-10.4); MONOCYTES 4.6 % (2-11); NEUTROPHILS 87.2 % (40-80); PLATELET COUNT 540 10x3/uL (130-400); RBC 3.44 10x6/uL (4.00-5.40); RDW 18.7 % (11.5-14.5); WBC 26.3 10x3/uL (4.8-10.8)
[2017-05-01 05:49] LABS: ANION GAP 13.8 mmol/L (8-16); CALCIUM 8.1 mg/dL (8.5-10.1); CARBON DIOXIDE 20.7 mmol/L (21.0-32.0); MAGNESIUM - SERUM 1.1 mg/dL (1.8-2.4)
[2017-05-01 05:56] LABS: POTASSIUM - SERUM 2.5 mmol/L (3.5-5.1)
[2017-05-01 10:15] VITALS: BP 81/48
[2017-05-01 12:35] VITALS: BP 111/54
[2017-05-01 16:19] VITALS: BP 106/49
[2017-05-01 19:47] LABS: MAGNESIUM - SERUM 1.2 mg/dL (1.8-2.4); POTASSIUM - SERUM 3.2 mmol/L (3.5-5.1)
[2017-05-01 20:00] VITALS: BP 97/41
[2017-05-02 04:00] VITALS: BP 115/51
[2017-05-02 04:09] LABS: HEMOGLOBIN 8.8 g/dL (12-16); RBC 3.45 10x6/uL (4.00-5.40); WBC 21.1 10x3/uL (4.8-10.8)
[2017-05-02 04:10] LABS: BASOPHILS 0.6 % (0-2); EOSINOPHILS 0.7 % (0-7); IMMATURE GRANULOCYTES 4.6 % (0-5); LYMPHOCYTES 6.6 % (15-50); MCH 25.5 pg (26.0-34.0); MCHC 30.3 g/dL (31.0-37.0); MCV 84.1 fL (80.0-100.0); MEAN PLATELET VOLUME 9.6 fL (7.4-10.4); MONOCYTES 3.3 % (2-11); NEUTROPHILS 84.2 % (40-80); PLATELET COUNT 480 10x3/uL (130-400); RDW 19.4 % (11.5-14.5)
[2017-05-02 05:02] LABS: ANION GAP 17.4 mmol/L (8-16); CALCIUM 8.3 mg/dL (8.5-10.1); CARBON DIOXIDE 18.3 mmol/L (21.0-32.0); CREATININE - SERUM 1.3 mg/dL (0.6-1.3); MAGNESIUM - SERUM 1.3 mg/dL (1.8-2.4); POTASSIUM - SERUM 4.7 mmol/L (3.5-5.1)
[2017-05-02 09:09] VITALS: BP 126/47
[2017-05-02 14:53] VITALS: BP 104/65
[2017-05-02 16:38] VITALS: BP 96/49
[2017-05-02 21:11] VITALS: BP 98/41
[2017-05-03 01:35] VITALS: BP 103/43
[2017-05-03 05:31] LABS: BASOPHILS 0.2 % (0-2); EOSINOPHILS 0.6 % (0-7); HEMATOCRIT 26.7 % (36.0-48.0); HEMOGLOBIN 8.3 g/dL (12-16); IMMATURE GRANULOCYTES 5.5 % (0-5); MCHC 31.1 g/dL (31.0-37.0); MEAN PLATELET VOLUME 9.9 fL (7.4-10.4); MONOCYTES 2.7 % (2-11); PLATELET COUNT 488 10x3/uL (130-400); RBC 3.32 10x6/uL (4.00-5.40); RDW 19.1 % (11.5-14.5); WBC 19.8 10x3/uL (4.8-10.8)
[2017-05-03 05:32] LABS: MCV 80.4 fL (80.0-100.0)
[2017-05-03 05:33] VITALS: BP 91/51
[2017-05-03 05:42] LABS: ANION GAP 15.2 mmol/L (8-16); CARBON DIOXIDE 19.6 mmol/L (21.0-32.0); CREATININE - SERUM 1.6 mg/dL (0.6-1.3); MAGNESIUM - SERUM 1.3 mg/dL (1.8-2.4); POTASSIUM - SERUM 4.8 mmol/L (3.5-5.1)
[2017-05-03 07:53] VITALS: BP 98/55
[2017-05-03 11:14] VITALS: BP 101/63
[2017-05-03 15:02] VITALS: BP 104/58
[2017-05-03 21:06] VITALS: BP 102/42
[2017-05-04 04:03] LABS: BASOPHILS 0.3 % (0-2); EOSINOPHILS 0.8 % (0-7); HEMATOCRIT 25.4 % (36.0-48.0); HEMOGLOBIN 8.1 g/dL (12-16); IMMATURE GRANULOCYTES 5.9 % (0-5); LYMPHOCYTES 6.4 % (15-50); MCH 25.2 pg (26.0-34.0); MCHC 31.9 g/dL (31.0-37.0); MCV 79.1 fL (80.0-100.0); MEAN PLATELET VOLUME 9.5 fL (7.4-10.4); MONOCYTES 2.9 % (2-11); NEUTROPHILS 83.7 % (40-80); PLATELET COUNT 438 10x3/uL (130-400); RBC 3.21 10x6/uL (4.00-5.40); RDW 18.8 % (11.5-14.5); WBC 18.7 10x3/uL (4.8-10.8)
[2017-05-04 04:20] LABS: ANION GAP 15.8 mmol/L (8-16); CALCIUM 8.1 mg/dL (8.5-10.1); CARBON DIOXIDE 19.4 mmol/L (21.0-32.0); CREATININE - SERUM 1.5 mg/dL (0.6-1.3); MAGNESIUM - SERUM 1.4 mg/dL (1.8-2.4); POTASSIUM - SERUM 4.2 mmol/L (3.5-5.1)
[2017-05-04 05:27] VITALS: BP 122/50
[2017-05-04 08:06] VITALS: BP 108/66
[2017-05-04 10:22] VITALS: BP 110/62
[2017-05-04 15:24] VITALS: BP 115/62
[2017-05-04 22:10] VITALS: BP 98/54
[2017-05-05 06:34] VITALS: BP 80/39
[2017-05-05 09:55] VITALS: BP 113/48
[2017-05-05 10:54] LABS: BASOPHILS 0.2 % (0-2); EOSINOPHILS 0.6 % (0-7); HEMOGLOBIN 8.3 g/dL (12-16); IMMATURE GRANULOCYTES 5.5 % (0-5); LYMPHOCYTES 6.1 % (15-50); MCH 24.6 pg (26.0-34.0); MCHC 30.7 g/dL (31.0-37.0); MCV 80.1 fL (80.0-100.0); MEAN PLATELET VOLUME 10.2 fL (7.4-10.4); MONOCYTES 2.5 % (2-11); NEUTROPHILS 85.1 % (40-80); PLATELET COUNT 429 10x3/uL (130-400); RBC 3.37 10x6/uL (4.00-5.40); RDW 18.7 % (11.5-14.5); WBC 20.8 10x3/uL (4.8-10.8)
[2017-05-05 11:00] LABS: ANION GAP 12.2 mmol/L (8-16); CALCIUM 8.3 mg/dL (8.5-10.1); CARBON DIOXIDE 19.7 mmol/L (21.0-32.0); CREATININE - SERUM 1.5 mg/dL (0.6-1.3); POTASSIUM - SERUM 3.9 mmol/L (3.5-5.1)
[2017-05-05 15:26] LABS: COLOR YELLOW (YELLOW)
[2017-05-05 15:27] LABS: APPEARANCE CLEAR (CLEAR); BILIRUBIN NEGATIVE (NEGATIVE); GLUCOSE NEGATIVE (NEGATIVE); KETONE NEGATIVE (NEGATIVE); NITRITE NEGATIVE (NEGATIVE); PROTEIN NEGATIVE (NEGATIVE); UROBILINOGEN NORMAL (NORMAL)
[2017-05-05 15:29] LABS: BACTERIA FEW /hpf (NONE SEEN); EPITHELIAL CELLS 0-5 /hpf (0-5); RED CELLS - URINE OCC /hpf (0-5); WHITE CELLS - URINE 0-5 /hpf (0-5)
[2017-05-05 20:00] VITALS: BP 104/50
[2017-05-06 06:33] LABS: BASOPHILS 0.2 % (0-2); EOSINOPHILS 0 % (0-7); HEMATOCRIT 27.1 % (36.0-48.0); HEMOGLOBIN 8.5 g/dL (12-16); IMMATURE GRANULOCYTES 7.7 % (0-5); MCHC 31.4 g/dL (31.0-37.0); MCV 79.7 fL (80.0-100.0); MEAN PLATELET VOLUME 9.5 fL (7.4-10.4); MONOCYTES 0.5 % (2-11); NEUTROPHILS 87.6 % (40-80); PLATELET COUNT 384 10x3/uL (130-400); RDW 18.8 % (11.5-14.5)
[2017-05-06 06:42] VITALS: BP 106/43
[2017-05-06 06:50] LABS: ANION GAP 14.6 mmol/L (8-16); CALCIUM 8.3 mg/dL (8.5-10.1); CARBON DIOXIDE 18.8 mmol/L (21.0-32.0); CREATININE - SERUM 1.4 mg/dL (0.6-1.3); MAGNESIUM - SERUM 1.4 mg/dL (1.8-2.4); PHOSPHOROUS 3.7 mg/dL (2.5-4.9); POTASSIUM - SERUM 4.4 mmol/L (3.5-5.1)
[2017-05-06 10:25] VITALS: BP 111/66
[2017-05-06 13:01] VITALS: BP 102/52
[2017-05-06 17:28] VITALS: BP 102/48
[2017-05-06 21:55] VITALS: BP 103/39
[2017-05-07 00:55] VITALS: BP 96/42
[2017-05-07 03:57] LABS: BASOPHILS 0.3 % (0-2); EOSINOPHILS 0 % (0-7); HEMATOCRIT 26.6 % (36.0-48.0); HEMOGLOBIN 8.4 g/dL (12-16); IMMATURE GRANULOCYTES 10.1 % (0-5); LYMPHOCYTES 5.9 % (15-50); MCH 25.2 pg (26.0-34.0); MCHC 31.6 g/dL (31.0-37.0); MCV 79.9 fL (80.0-100.0); MEAN PLATELET VOLUME 10.1 fL (7.4-10.4); MONOCYTES 3.1 % (2-11); NEUTROPHILS 80.6 % (40-80); PLATELET COUNT 407 10x3/uL (130-400); RBC 3.33 10x6/uL (4.00-5.40); RDW 18.9 % (11.5-14.5); WBC 14.4 10x3/uL (4.8-10.8)
[2017-05-07 04:24] LABS: ANION GAP 15.5 mmol/L (8-16); CARBON DIOXIDE 18.7 mmol/L (21.0-32.0); CREATININE - SERUM 1.5 mg/dL (0.6-1.3); MAGNESIUM - SERUM 1.6 mg/dL (1.8-2.4); POTASSIUM - SERUM 4.2 mmol/L (3.5-5.1)
[2017-05-07 05:48] VITALS: BP 117/51
[2017-05-07 10:28] VITALS: BP 109/54
[2017-05-07 13:17] VITALS: BP 113/51
[2017-05-07 16:30] VITALS: BP 99/58
[2017-05-07 19:00] VITALS: BP 98/63
[2017-05-08 03:33] VITALS: BP 99/46
[2017-05-08 07:44] VITALS: BP 103/70
[2017-05-08 08:14] LABS: BASOPHILS 0.2 % (0-2); EOSINOPHILS 0 % (0-7); HEMATOCRIT 26.3 % (36.0-48.0); HEMOGLOBIN 8.2 g/dL (12-16); IMMATURE GRANULOCYTES 7.9 % (0-5); MCH 24.7 pg (26.0-34.0); MCHC 31.2 g/dL (31.0-37.0); MCV 79.2 fL (80.0-100.0); MEAN PLATELET VOLUME 9.9 fL (7.4-10.4); MONOCYTES 4.8 % (2-11); NEUTROPHILS 81.1 % (40-80); PLATELET COUNT 396 10x3/uL (130-400); RBC 3.32 10x6/uL (4.00-5.40); RDW 18.5 % (11.5-14.5); WBC 13.3 10x3/uL (4.8-10.8)
[2017-05-08 08:37] LABS: CALCIUM 7.7 mg/dL (8.5-10.1); CARBON DIOXIDE 19.7 mmol/L (21.0-32.0); CREATININE - SERUM 1.6 mg/dL (0.6-1.3); MAGNESIUM - SERUM 1.8 mg/dL (1.8-2.4); POTASSIUM - SERUM 4.7 mmol/L (3.5-5.1)
[2017-05-08 11:01] VITALS: BP 114/48
[2017-05-08 15:22] VITALS: BP 105/48
[2017-05-08 21:12] VITALS: BP 102/64
[2017-05-09 01:52] VITALS: BP 106/64
[2017-05-09 04:32] LABS: BASOPHILS 0.2 % (0-2); EOSINOPHILS 0 % (0-7); HEMATOCRIT 25.8 % (36.0-48.0); IMMATURE GRANULOCYTES 5.9 % (0-5); LYMPHOCYTES 4.3 % (15-50); MCH 24.5 pg (26.0-34.0); MCV 78.9 fL (80.0-100.0); MEAN PLATELET VOLUME 10.6 fL (7.4-10.4); MONOCYTES 3.9 % (2-11); NEUTROPHILS 85.7 % (40-80); PLATELET COUNT 406 10x3/uL (130-400); RBC 3.27 10x6/uL (4.00-5.40); RDW 18.5 % (11.5-14.5)
[2017-05-09 05:10] LABS: ANION GAP 14.7 mmol/L (8-16); CALCIUM 7.9 mg/dL (8.5-10.1); CARBON DIOXIDE 20.8 mmol/L (21.0-32.0); CREATININE - SERUM 1.5 mg/dL (0.6-1.3); POTASSIUM - SERUM 4.5 mmol/L (3.5-5.1)
[2017-05-09 05:37] VITALS: BP 115/76
[2017-05-09 09:01] VITALS: BP 126/55
[2017-05-09 13:03] VITALS: BP 120/56
[2017-05-09 17:15] VITALS: BP 125/56
[2017-05-09 21:25] VITALS: BP 122/55
[2017-05-10] VITALS (7 sets, daily range): BP systolic 132–148; BP diastolic 46–66
[2017-05-10 05:07] LABS: ANION GAP 16.8 mmol/L (8-16); CARBON DIOXIDE 22.1 mmol/L (21.0-32.0); CREATININE - SERUM 1.3 mg/dL (0.6-1.3); POTASSIUM - SERUM 4.9 mmol/L (3.5-5.1)
[2017-05-10 05:09] LABS: BASOPHILS 0.1 % (0-2); EOSINOPHILS 0 % (0-7); HEMATOCRIT 28.5 % (36.0-48.0); IMMATURE GRANULOCYTES 3.2 % (0-5); LYMPHOCYTES 4.9 % (15-50); MCH 24.9 pg (26.0-34.0); MCHC 31.6 g/dL (31.0-37.0); MCV 78.9 fL (80.0-100.0); MEAN PLATELET VOLUME 11.3 fL (7.4-10.4); MONOCYTES 7.1 % (2-11); NEUTROPHILS 84.7 % (40-80); PLATELET COUNT 439 10x3/uL (130-400); RBC 3.61 10x6/uL (4.00-5.40); RDW 18.8 % (11.5-14.5); WBC 15.9 10x3/uL (4.8-10.8)
[2017-05-11] VITALS (7 sets, daily range): BP systolic 122–154; BP diastolic 60–98
[2017-05-11] MEDS ORDERED: NEURONTIN 300300 MG PO (15:30)
[2017-05-11] MEDS ORDERED: PARAFON FORTE500 MG PO (15:32)
[2017-05-11] MEDS ORDERED: SOMA350 MG PO (15:33)
[2017-05-11 17:08] LABS: ALBUMIN 1.8 g/dL (3.4-5.0); ANION GAP 13.1 mmol/L (8-16); CALCIUM 7.7 mg/dL (8.5-10.1); CARBON DIOXIDE 27.1 mmol/L (21.0-32.0); CREATININE - SERUM 1.4 mg/dL (0.6-1.3); MAGNESIUM - SERUM 2.4 mg/dL (1.8-2.4); PHOSPHOROUS 3.8 mg/dL (2.5-4.9); POTASSIUM - SERUM 4.2 mmol/L (3.5-5.1); PRE-ALBUMIN 29.4 mg/dL (18.0-35.7)
[2017-05-12 01:12] VITALS: BP 151/57
[2017-05-12 05:21] VITALS: BP 145/67
[2017-05-12 06:45] LABS: ANION GAP 14.1 mmol/L (8-16); CALCIUM 7.9 mg/dL (8.5-10.1); CARBON DIOXIDE 26.9 mmol/L (21.0-32.0); CREATININE - SERUM 1.4 mg/dL (0.6-1.3); MAGNESIUM - SERUM 2.3 mg/dL (1.8-2.4); PHOSPHOROUS 3.4 mg/dL (2.5-4.9)
[2017-05-12 08:09] VITALS: BP 125/52
[2017-05-12 11:34] VITALS: BP 140/65
[2017-05-12 15:36] VITALS: BP 128/62
[2017-05-12 20:11] VITALS: BP 115/51
[2017-05-13] VITALS (12 sets, daily range): BP systolic 97–136; BP diastolic 43–65; Ht 165.1 cm; Wt 58.0 kg
[2017-05-13 04:41] LABS: CALCIUM 7.6 mg/dL (8.5-10.1); CARBON DIOXIDE 30.4 mmol/L (21.0-32.0); CREATININE - SERUM 1.2 mg/dL (0.6-1.3); MAGNESIUM - SERUM 2.1 mg/dL (1.8-2.4); PHOSPHOROUS 3.1 mg/dL (2.5-4.9); POTASSIUM - SERUM 3.4 mmol/L (3.5-5.1)
[2017-05-14] VITALS (23 sets, daily range): BP systolic 63–124; BP diastolic 32–71
[2017-05-14 03:57] LABS: BASOPHILS 0.1 % (0-2); EOSINOPHILS 0 % (0-7); HEMATOCRIT 28.1 % (36.0-48.0); HEMOGLOBIN 8.6 g/dL (12-16); IMMATURE GRANULOCYTES 1.2 % (0-5); LYMPHOCYTES 0.9 % (15-50); MCH 24.6 pg (26.0-34.0); MCHC 30.6 g/dL (31.0-37.0); MCV 80.3 fL (80.0-100.0); MONOCYTES 1.9 % (2-11); NEUTROPHILS 95.9 % (40-80); PLATELET COUNT 201 10x3/uL (130-400); RDW 18.5 % (11.5-14.5); WBC 32.8 10x3/uL (4.8-10.8)
[2017-05-14 04:12] LABS: CALCIUM 8.1 mg/dL (8.5-10.1); CARBON DIOXIDE 29.3 mmol/L (21.0-32.0); CREATININE - SERUM 1.3 mg/dL (0.6-1.3); MAGNESIUM - SERUM 2.1 mg/dL (1.8-2.4); PHOSPHOROUS 3.5 mg/dL (2.5-4.9)
[2017-05-14 04:29] LABS: ANION GAP 9.9 mmol/L (8-16); POTASSIUM - SERUM 4.2 mmol/L (3.5-5.1)
== END 2017-05-14 20:30 | DRG 371 ==
LOC: D.ICU 11:00 → D.M2 11:00 → D.ICU 05-13 17:36
PROVIDERS: Family Medicine; Internal Medicine Pulmonary Disease; Surgery
PROC: 05HC33Z Insertion of Infusion Device into Left Basilic Vein, Percutaneous Approach (ICD-10-PCS; principal; 2017-05-06)
PROC: B54NZZA Ultrasonography of Left Upper Extremity Veins, Guidance (ICD-10-PCS; 2017-05-06)
PROC: 0DB78ZX Excision of Stomach, Pylorus, Via Natural or Artificial Opening Endoscopic, Diagnostic (ICD-10-PCS; 2017-05-11)
PROC: 0DH63UZ Insertion of Feeding Device into Stomach, Percutaneous Approach (ICD-10-PCS; 2017-05-11)
PROC: 5A09457 Assistance with Respiratory Ventilation, 24-96 Consecutive Hours, Continuous Positive Airway Pressure (ICD-10-PCS; 2017-05-13)
DX: A04.72 Enterocolitis due to Clostridium difficile, not specified as recurrent (principal); J18.9 Pneumonia, unspecified organism; J96.21 Acute and chronic respiratory failure with hypoxia; N39.0 Urinary tract infection, site not specified; J44.0 Chronic obstructive pulmonary disease with (acute) lower respiratory infection; J44.1 Chronic obstructive pulmonary disease with (acute) exacerbation; E46 Unspecified protein-calorie malnutrition; Z68.1 Body mass index [BMI] 19.9 or less, adult; I11.0 Hypertensive heart disease with heart failure; I50.9 Heart failure, unspecified; E78.5 Hyperlipidemia, unspecified; I27.20 Pulmonary hypertension, unspecified; F41.9 Anxiety disorder, unspecified; I08.1 Rheumatic disorders of both mitral and tricuspid valves; I95.9 Hypotension, unspecified; K29.70 Gastritis, unspecified, without bleeding